=== PATIENT | male | born 1940 | race Caucasian/White ===

== ENCOUNTER 2021-09-29 10:23 | Outpatient (CLI) | payer OTHER, SELFPAY ==
--- NOTE | ~2021-09-29 | XR_ITS ---
EXAMINATION: XR knee RT 2V DATE: 09/29/2021 10:41 INDICATION: Right knee pain TECHNIQUE: Two views of the right knee were obtained. COMPARISON: None. FINDINGS: Alignment is normal. No fracture or osteochondral lesion. There is mild tricompartmental os teoarthritis characterized by tiny marginal osteophytes and mild joint space narrowing. No joint effu ran/synovitis. Soft tissues are unremarkable. IMPRESSION: 1. Mild osteoarthritis. Reviewed, dictated and finalized at location A. 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 Mild osteoarthritis.
== END 2021-09-29 10:24 | disposition home or self-care (01) ==
LOC: ANHIMG 10:25
PROVIDERS: PCP Emergency Medicine; Visit Provider Emergency Medicine
DX: M17.11 Unilateral primary osteoarthritis, right knee (principal)
CPT/HCPCS: 73560

== ENCOUNTER 2022-08-09 11:18 | Emergency (ER) | payer OTHER, SELFPAY ==
[2022-08-09 11:22] VITALS: BP 114/67; PULSE 101; RESP 18; TEMP 36.5; O2SAT 98
[2022-08-09 12:07] LABS: Add Urine Microscopic? YES; Appearance Urine Clear (Clear); Bilirubin Urine Negative (Negative); Blood Urine 1+ (Negative); Color Urine Yellow (Yellow); Glucose Urine UA Negative (Negative); Ketones Urine Negative (Negative); Leukocyte Esterase Ur Negative LEU/UL (Negative); Mucus Urine Rare /lpf; Nitrate Urine Negative (Negative); Protein Urine Negative (Negative); Specific Grav Ur 1.012 (1.001-1.035); Urobilinogen Urine Negative mg/dL (<2.0); WBC Urine 0-3 /hpf
--- NOTE | 2022-08-09 13:00 | ED.MALEGU ---
HPI - Male Genitourinary General Chief complaint: Urogenital-Male Stated complaint: urinary retention Time Seen by Provider: 08/09/22 13:00 Source: patient Mode of arrival: ambulatory Limitations: no limitations History of Present Illness HPI Narrative: Patient is an 81-year-old male with a history of urinary retention presenting to the emergency department for evaluation of straining with urination, difficulty with urination ongoing over the past 72 hours. Patient states he noted symptoms 3 days ago after a night of heavy alcohol use. Patient states he has straining with urination and slow stream that progressed over the weekend. Patient states that he felt like he cannot fully empty his bladder and had some mild abdominal discomfort with this. Patient denies any back pain. He denies fever, chills, hematuria. Patient reports history of this in the past for which he required Motta catheter, this was removed by urology and patient has not had recurrence in 2 years. Related Data Home Medications Medication Instructions Recorded Confirmed albuterol sulfate 2.5 mg/3 mL See Rx Instructions .Route .COMPLEX 10/25/19 09/29/21 (0.083 %) solution for nebulization budesonide-formoterol HFA 80 2 puff inhalation .COMPLEX 10/25/19 09/29/21 mcg-4.5 mcg/actuation aerosol inhaler (Symbicort) tramadol 50 mg tablet (Ultram) 50 mg PO Q6H PRN 10/25/19 09/29/21 Allergies Allergy/AdvReac Type Severity Reaction Status Date / Time No Known Allergies Allergy Verified 07/12/22 09:29 Review of Systems Review of Systems: CONSTITUTIONAL: Denies fever CARDIOVASCULAR: Denies chest pain RESPIRATORY: Denies cough or dyspnea. GASTROINTESTINAL: Denies abdominal pain, reports mild suprapubic distesnion with reports urinary retention SKIN: Denies rash MUSCULOSKELETAL: Denies back pain NEUROLOGIC: Denies headache PMFSH Past Medical History Medical History Acute dermatitis Body mass index [BMI] 26.0-26.9, adult (07/22/17) Body mass index [BMI] 27.0-27.9, adult (02/01/17) Body mass index [BMI] 31.0-31.9, adult (05/18/16) Bronchitis Coughing Enlarged prostate without lower urinary tract symptoms (luts) HLD (hyperlipidemia) URI, acute Wheezing Family History Family History Father Family history of congestive heart failure, Onset Age: 92 Sibling Asthma Social History Social History Smoking status: Former smoker Smoking end date: 10/24/77 Alcohol intake: current Exam Narrative: GENERAL: Awake, alert, conversant HEAD: Normocephalic, atraumatic. EYES: PERRLA and EOMI. ENT: Nares clear, no rhinorrhea or epistaxis. Mucous membranes moist. NECK: Supple. CHEST: No respiratory distress, breathing even and non labored HEART: Regular rate, sinus rhythm ABDOMEN:Non distended, non tender, no significant distension EXTREMITIES: Normal range of motion. No edema. SKIN: Warm, dry, no rash. NEURO:No focal deficits. Alert and oriented x3 Course Vital Signs Vital signs: Vital Signs Temperature 36.5 C 08/09/22 11:22 Pulse Rate 101 H 08/09/22 11:22 Respiratory Rate 18 08/09/22 11:22 Blood Pressure 114/67 08/09/22 11:22 Pulse Oximetry 98 08/09/22 11:22 Oxygen Delivery Room Air 08/09/22 11:22 Temperature 36.5 C 08/09/22 11:22 Pulse Rate 101 H 08/09/22 11:22 Respiratory Rate 18 08/09/22 11:22 Blood Pressure 114/67 08/09/22 11:22 Pulse Oximetry 98 08/09/22 11:22 Oxygen Delivery Room Air 08/09/22 11:22 MDM - Male Genitourinary MDM Narrative Medical decision making narrative: Patient presenting for evaluation of urinary retention after a night of heavy alcohol use. At the time of assessment, ABCs are intact and vital signs are stable. Patient without any significant pain on exam. Motta catheter was placed due to
[2022-08-09 13:52] LABS: Basophils Absolute Auto 0.1 K/mm3 (0.0-0.1); Basophils Percent Auto 1.3 % (0.2-1.2); Eosinophils Absolute Auto 0.6 K/mm3 (0-0.3); Eosinophils Percent Auto 6.9 % (0-4.4); Hematocrit 45.5 % (42.0-52.0); Hemoglobin 14.5 g/dL (14.0-18.0); Immature Granulocyte Absolute 0.04 K/mm3 (0.00-0.031); Immature Granulocyte Percent A 0.5 % (0-0.5); Lymphocytes Absolute Auto 1.55 K/mm3 (0.9-3.2); Lymphocytes Percent Auto 18.1 % (18.3-44.2); Mean Corpuscular HGB Conc 31.9 g/dl (32-36); Mean Corpuscular Hemoglobin 30.2 pg (26-34); Mean Corpuscular Volume 94.8 fl (80-100); Mean Platelet Volume 8.7 fl (7.4-10.4); Monocytes Absolute Auto 0.6 K/mm3 (0.1-0.6); Monocytes Percent Auto 6.9 % (2.6-8.5); Neutrophils Absolute Auto 5.7 K/mm3 (1.3-6.7); Neutrophils Percent Auto 66.3 % (45.5-73.1); Platelet Count Result 253 k/mm3 (150-375); Red Cell Distribution Width 12.7 % (11.5-14.5); White Blood Count 8.6 K/mm3 (4.5-10.0)
[2022-08-09 14:09] LABS: Anion Gap 7 mmol/L (8-16); Blood Urea Nitrogen 15 mg/dL (9-20); Calcium 8.9 mg/dL (8.4-10.2); Carbon Dioxide 31 mmol/L (22-30); Chloride 99 mmol/L (98-107); Estimated CRCL calculation 49 ml/min; Estimated Glomerular Filt Rate > 60; Glucose 100 mg/dL (65-110); Potassium 4.5 mmol/L (3.4-5.0); Sodium 137 mmol/L (137-145)
[2022-08-09 15:20] VITALS: BP 159/89; PULSE 79; RESP 16; O2SAT 97
== END 2022-08-09 15:20 | disposition home or self-care (01) ==
PROVIDERS: Emergency Provider Emergency Medicine; PCP Emergency Medicine
DX: N39.0 Urinary tract infection, site not specified (principal); N40.0 Benign prostatic hyperplasia without lower urinary tract symptoms; E78.5 Hyperlipidemia, unspecified; Z87.891 Personal history of nicotine dependence
CPT/HCPCS: 36415; 80048; 81001; 85025; 99283

== ENCOUNTER 2023-07-19 15:06 | Emergency (ER) | payer OTHER, SELFPAY ==
[2023-07-19 15:51] VITALS: BP 135/65; PULSE 110; RESP 18; TEMP 37.1; O2SAT 95
[2023-07-19 16:24] LABS: Appearance Urine Clear (Clear); Bilirubin Urine Negative (Negative); Blood Urine Negative (Negative); Color Urine Yellow (Yellow); Glucose Urine UA Negative (Negative); Ketones Urine Trace mg/dL (Negative); Leukocyte Esterase Ur Negative LEU/UL (Negative); Nitrate Urine Negative (Negative); Protein Urine Negative (Negative); Specific Grav Ur 1.006 (1.001-1.035); Urobilinogen Urine 0.2 mg/dL (<2.0)
[2023-07-19 16:36] LABS: Add Urine Microscopic? NO
--- NOTE | 2023-07-19 17:16 | ED.GENADULT ---
HPI - General Adult General Chief complaint: Urogenital-Male Stated complaint: urinary retention Time Seen by Provider: 07/19/23 15:56 History of Present Illness HPI narrative: 82-year-old male present emergency department for evaluation of urinary retention. Patient had urinary retention approximately 2 years ago and did have follow-up with Dr. Vaughan. patient did have the Motta catheter for approximately 16 days at that time after removal patient had no further issues with urinary retention. Patient states that he got donkyed up last night. Patient reported increased urinary pressure and inability to urinate and so he presented to the emergency department. Related Data Home Medications Medication Instructions Recorded Confirmed budesonide-formoterol HFA 80 2 puff inhalation .COMPLEX 10/25/19 07/12/23 mcg-4.5 mcg/actuation aerosol inhaler (Symbicort) tramadol 50 mg tablet (Ultram) 50 mg PO Q6H PRN 10/25/19 07/12/23 Allergies Allergy/AdvReac Type Severity Reaction Status Date / Time No Known Allergies Allergy Verified 07/19/23 15:06 Review of Systems Review of Systems: All systems reviewed & are unremarkable except as noted in HPI and below PMFSH Past Medical History Medical History Acute dermatitis Body mass index [BMI] 26.0-26.9, adult (07/22/17) Body mass index [BMI] 27.0-27.9, adult (02/01/17) Body mass index [BMI] 31.0-31.9, adult (05/18/16) Bronchitis Coughing Enlarged prostate without lower urinary tract symptoms (luts) HLD (hyperlipidemia) URI, acute Wheezing Family History Family History Father Family history of congestive heart failure, Onset Age: 92 Sibling Asthma Social History Social History Smoking status: Former smoker Smoking end date: 10/24/77 Alcohol intake: current Current Housing: Decline to Answer Concerned About Future Housing: Decline to Answer Difficulty Paying Gas/Electric Bills: Decline to Answer Difficulty Paying for Meds: Decline to Answer Currently Unemployed: Decline to Answer Education: Decline to Answer Difficulty w/ Childcare or Family Care: Decline to Answer Exam Narrative: APPEARANCE: Well appearing, no pain, no distress, well-nourished. HEAD: normocephalic, atraumatic. EYES: PERRLA/EOMI, conjunctivae clear. NOSE: Normal no drainage NECK: Supple. No adenopathy, no masses. RESPIRATORY: Airway patent, respirations nonlabored. Clear to auscultation bilaterally, no rales, rhonchi, wheezing. CARDIOVASCULAR: Regular rate and rhythm without murmurs rubs or gallops. ABDOMINAL: Soft, nontender, nondistended, normal bowel sounds MUSCULOSKELETAL: Moves all extremities. Strength/ROM intact, No edema, No calf tenderness. NEURO: Alert. Cranial nerves II through XII intact. SKIN: Warm, dry. Normal Color Course Course Emergency Course: 82-year-old male present to the emergency department for evaluation urinary tension. Patient had significant urine on the bladder scan and had greater than 800 mL of urinary output after the Motta catheter. UA showed no evidence of urinary tract infection. Patient was started on Flomax and encouraged of close follow-up with urology. All questions and concerns were addressed Vital Signs Vital signs: Vital Signs Temperature 98.7 F 07/19/23 15:51 Pulse Rate 110 H 07/19/23 15:51 Respiratory Rate 18 07/19/23 15:51 Blood Pressure 135/65 07/19/23 15:51 Pulse Oximetry 95 07/19/23 15:51 Oxygen Delivery Room Air 07/19/23 15:51 Temperature 98.7 F 07/19/23 15:51 Pulse Rate 110 H 07/19/23 15:51 Respiratory Rate 18 07/19/23 15:51 Blood Pressure 135/65 07/19/23 15:51 Pulse Oximetry 95 07/19/23 15:51 Oxygen Delivery Room Air 07/19/23 15:51 Medical Decision Making Vital Signs Vital Signs: Vital
[2023-07-19] MEDS: TAMSULOSIN HCL 0.4 MG CAPSULE PO (17:30)
== END 2023-07-19 17:44 | disposition home or self-care (01) ==
PROVIDERS: Emergency Provider Emergency Medicine; PCP Emergency Medicine
DX: N40.1 Benign prostatic hyperplasia with lower urinary tract symptoms (principal); R33.8 Other retention of urine; E78.5 Hyperlipidemia, unspecified
CPT/HCPCS: 51702; 81003; 99283; A9270

== ENCOUNTER 2023-08-29 06:39 | Outpatient (CLI) | payer OTHER, SELFPAY ==
[2023-08-29 07:29] LABS: Alanine Aminotransferase 12 U/L (6-50); Alkaline Phosphatase 36 U/L (38-126); Anion Gap 4 mmol/L (8-16); Aspartate Amino Transferase 23 U/L (17-59); Blood Urea Nitrogen 16 mg/dL (9-20); Calcium 8.9 mg/dL (8.4-10.2); Carbon Dioxide 30 mmol/L (22-30); Chloride 101 mmol/L (98-107); Cholesterol 175 mg/dL (0-200); Estimated Glomerular Filt Rate > 60; Glucose 95 mg/dL (65-110); HDL Direct 58 mg/dL; Potassium 4.3 mmol/L (3.4-5.0); Sodium 135 mmol/L (137-145); Triglycerides 52 mg/dL (<150)
[2023-08-29 07:40] LABS: LDL Cholesterol Direct 93 mg/dL
[2023-08-29 07:46] LABS: Vitamin D 25 Hydroxy 35.3 ng/mL
== END 2023-08-29 06:40 | disposition home or self-care (01) ==
PROVIDERS: PCP Emergency Medicine; Visit Provider Emergency Medicine
DX: E55.9 Vitamin D deficiency, unspecified (principal); E78.5 Hyperlipidemia, unspecified; E11.9 Type 2 diabetes mellitus without complications
CPT/HCPCS: 36415; 80053; 80061; 82306

== ENCOUNTER 2023-10-11 15:46 | Emergency (ER) | payer OTHER, SELFPAY ==
--- NOTE | ~2023-10-11 | XR_ITS ---
EXAMINATION: XR chest 2V DATE: 10/11/2023 17:59 INDICATION: Shortness of breath. TECHNIQUE: Frontal and lateral views of the chest were obtained. COMPARISON: None. FINDINGS: Calcified pulmonary nodules and calcified hilar and mediastinal lymph nodes are consistent with old granulomatous disease. No pleural effusion or pneumothorax. The heart size is normal. IMPRESSION: 1. No acute cardiopulmonary disease. 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
[2023-10-11 15:48] VITALS: BP 135/68; PULSE 97; RESP 20; TEMP 36.9; O2SAT 93
--- NOTE | 2023-10-11 16:58 | ECG_ITS ---
Measurements Intervals [place] Rate: 87 P: 81 MA: 170 QRS: -69 QRSD: 112 T: 76 QT: 351 QTc: 423 Interpretive Statements SINUS RHYTHM LEFT ANTERIOR FASCICULAR BLOCK [QRS AXIS <= -45, QR IN I, RS IN II] SEPTAL MYOCARDIAL INFARCTION , OF INDETERMINATE AGE [40+ ms Q WAVE IN V1/V2] ABNORMAL ECG NO PREVIOUS ECG AVAILABLE FOR COMPARISON Electronically Signed On 10-12-2023 15:32:45 FRONT DESK AGENT by Wilner Dsouza M.D.
--- NOTE | 2023-10-11 17:10 | ED.SOB ---
HPI - SOB/Dyspnea General Chief Complaint: Shortness of Breath/Dyspnea Stated Complaint: shortness of breath Time Seen by Provider: 10/11/23 17:09 Source: patient Mode of arrival: ambulatory Limitations: no limitations History of Present Illness HPI Narrative: Aubrey is an 82-year-old male patient presenting to the ER today with complaints of cough and shortness of breath. Reports he is bringing up some green phlegm. History of COPD. Is wheezing audibly. SpO2 93% on room air. Is able speak in full sentences. Denies any chest pain, fever, or chills. Related Data Allergies Allergy/AdvReac Type Severity Reaction Status Date / Time No Known Allergies Allergy Verified 09/02/23 08:39 Review of Systems Review of Systems: Pertinent positives per HPI. Patient denies any fever, chills, rash, headache, visual changes, dizziness, chest pain, palpitations, nausea, vomiting, diarrhea, constipation, abdominal pain, or any urinary issues. PMFSH Past Medical History Medical History Acute dermatitis Body mass index [BMI] 26.0-26.9, adult (07/22/17) Body mass index [BMI] 27.0-27.9, adult (02/01/17) Body mass index [BMI] 31.0-31.9, adult (05/18/16) Bronchitis Coughing Enlarged prostate without lower urinary tract symptoms (luts) HLD (hyperlipidemia) URI, acute Wheezing Family History Family History Father Family history of congestive heart failure, Onset Age: 92 Sibling Asthma Social History Social History Smoking status: Former smoker Smoking end date: 10/24/77 Alcohol intake: current Current Housing: Decline to Answer Concerned About Future Housing: Decline to Answer Difficulty Paying Gas/Electric Bills: Decline to Answer Difficulty Paying for Meds: Decline to Answer Currently Unemployed: Decline to Answer Education: Decline to Answer Difficulty w/ Childcare or Family Care: Decline to Answer Comments At the time of my signature, I reviewed and agree with the nursing past medical, surgical, social, and family history. There is no relevant family history pertinent to the patient complaint. Exam Narrative: General: Well-developed, well nourished, in no apparent distress Head: Normocephalic, atraumatic Eyes: Pupils equally round and reactive to light bilaterally, EOM intact, sclera and conjunctive clear, no discharge, lids normal Ears: TMs intact and clear, ear canals clear, no drainage, grossly hearing normal. Nose: Nares patent, clear nasal discharge, no inflammation, no sinus tenderness. Mouth: Oral pharynx without lesions or masses, good dentition, MMM. Neck: Supple, trachea midline, no enlargement of anterior or posterior cervical nodes, no thyroid masses or goiter palpable. Cardio: Regular rate and rhythm, s1 and s2 normal, no murmur appreciated. Resp: Inspiratory and expiratory wheezing, no crackles, rhonchi, or rubs. Course Course Emergency Course: Portions of this record may have been created with voice recognition software. Vital Signs Vital signs: Vital Signs Temperature 36.9 C 10/11/23 15:48 Pulse Rate 97 10/11/23 15:48 Respiratory Rate 20 10/11/23 15:48 Blood Pressure 135/68 10/11/23 15:48 Pulse Oximetry 93 10/11/23 15:48 Oxygen Delivery Room Air 10/11/23 15:48 Temperature 36.9 C 10/11/23 15:48 Pulse Rate 97 10/11/23 15:48 Respiratory Rate 20 10/11/23 15:48 Blood Pressure 135/68 10/11/23 15:48 Pulse Oximetry 93 10/11/23 15:48 Oxygen Delivery Room Air 10/11/23 15:48 Vital signs reviewed MDM - SOB/Dyspnea MDM Narrative Medical decision making narrative: At the time of visit patient is resting comfortably on the exam table. Patient appears to be nontoxic. EKG shows sinus rhythm with a left anterior fascicular block with an age ind
[2023-10-11 17:38] VITALS: PULSE 98; RESP 20
[2023-10-11] MEDS: ALBUTEROL SULFATE NEB 2.5 MG/3 ML INH INHALATION (17:38)
[2023-10-11] MEDS: IPRATROPIUM BR 0.02% INH SOLN 0.5 MG/2.5 ML VIAL INHALATION (17:38)
[2023-10-11 17:55] LABS: Influenza A QL RT-PCR Negative (Negative); Influenza B QL RT-PCR Negative (Negative); RSV RNA, RT-PCR Negative (Negative); SARS-CoV-2 RNA PCR Negative (Negative)
[2023-10-11 18:14] VITALS: BP 136/75; PULSE 90; RESP 20; TEMP 36.8; O2SAT 93
== END 2023-10-11 18:26 | disposition home or self-care (01) ==
PROVIDERS: Emergency Provider Nurse Practitioner Family; PCP Emergency Medicine
DX: J44.1 Chronic obstructive pulmonary disease with (acute) exacerbation (principal)
CPT/HCPCS: 71046; 87637; 93005; 94640; 99283

== ENCOUNTER 2023-12-23 07:40 | Outpatient (CLI) | payer OTHER, SELFPAY ==
[2023-12-23 08:01] LABS: Alveolar/Arterial O2 Gradient 30.5 mmHg; Base Excess ABG 2.1 mEq/l (+/-2.0); Carboxyhemoglobin 0.3 % THb (0-2.0); Fractional Inspired Oxygen 21 %; HCO3 ABG 26.5 mEq/l (22.0-26.0); Methemoglobin ABG 0.4 %THb (0-1.5); Oxygen Content ABG 19.9 %vol (16.0-22.0); Oxygen Saturation ABG 94.6 % (95.0-100.0); Oxyhemoglobin 93.8 % THb (90.0-100.0); PCO2 ABG 40.7 mmHg (35.0-45.0); PO2 ABG 70.5 mmHg (80.0-100.0); PO2 FiO2 Ratio Arterial Blood 3.36 %; Reduced Hemoglobin 5.5 %THb (0-5.0); Total Hemoglobin 15.1 g/dL (12.0-18.0); pH ABG 7.432 (7.350-7.450)
[2023-12-23 09:22] LABS: Modified Allen's Test Pass; Site Drawn RIGHT RADIAL
--- NOTE | 2023-12-23 14:20 | WPDSIXMINUTE ---
Six Minute Walk Procedure Procedure Performed Pulmonary Stress Test (6 min walk) Six Minute Walk Six Minute Walk: This is a 6 minute walk test. The test was performed and interpreted in accordance with the 2014 ERS/ATS task force guidelines. Findings: The patient's resting room air oxygen saturation measured by pulse oximetry was 96% and heart rate was 76 bpm. Patient ambulated for 381 meters and oxygen saturation remained 94 to 96%. Heart rate at the end of the study was 94 bpm. The patient did not qualify for supplemental oxygen at rest or with ambulation. There are no prior studies for comparison.
--- NOTE | 2023-12-23 14:21 | P.PCNPFT_ITS ---
PFT Procedure Performed PFT Procedure Performed Spirometry with Pre/Post Bronchodilator Plethysmography (Lung Vol) Diffusing Cap (DLCO) Flow Vol Loop PFT Interpretation This is a pulmonary function test with pre and post-bronchodilator spirometry, plethysmography, diffusing capacity and rest room air blood gas. The test was performed and results interpreted in accordance with the 2019 and 2005 ATS/ERS Task Force guidelines respectively using the Global Lung Function Initiative-2012 reference equations. Patient demonstrated good effort and cooperation. Reproducibility criteria were met. The quality of the pre bronchodilator spirometry maneuver was Grade A and post bronchodilator spirometry maneuver was Grade A. Findings: Spirometry: There is decreased maximal expiratory airflow at all lung volumes with concave expiratory flow tracing. The contour the inspiratory flow tracing is normal. The pre bronchodilator FVC is 3.36 L, 101% predicted. The pre bronchodilator FEV1 is 1.55 L, 62% predicted. The pre bronchodilator FEV1: FVC ratio is 46%. The post bronchodilator FVC is 3.75 L, representing a 12% increase. The post bronchodilator FEV1 is 1.80 L, representing a 16% increase. The post bronchodilator FEV1: FVC ratio is 48%. Plethysmography: The total lung capacity is 6.52 L, 104% predicted. The functional residual capacity is 4.10 L, 122% predicted. The residual volume is 3.16 L, 127% predicted. Diffusing capacity: The diffusing capacity unadjusted for hemoglobin and c arboxyhemoglobin is 17.5, 81% predicted. Diffusing capacity adjusted for alveolar volume is 4.07, 107 % predicted. Rest room air arterial blood gas: PH 7.43, PaCO2 41, PaO2 71 Impression: There is a moderate obstructive abnormality. There is significant improvement after inhaling a single dose of albuterol. the lung volumes are normal. The diffusing capacity is normal. The rest room air arterial blood gas shows a normal pH and PaCO2 with a PaO2 that is low but above the lower limit of normal for patient's age and does not qualify him for supplemental oxygen.
== END 2023-12-23 07:41 | disposition home or self-care (01) ==
PROVIDERS: PCP Emergency Medicine; Visit Provider Internal Medicine Pulmonary Disease
DX: J44.9 Chronic obstructive pulmonary disease, unspecified (principal)
CPT/HCPCS: 36600; 82375; 82805; 83050; 94060; 94618; 94726; 94729

== ENCOUNTER 2024-03-13 10:13 | Outpatient (CLI) | payer OTHER, SELFPAY ==
[2024-03-13 11:32] LABS: Vitamin D 25 Hydroxy 37.9 ng/mL
[2024-03-13 12:56] LABS: Alanine Aminotransferase 15 U/L (6-50); Albumin Level 3.7 g/dL (3.5-5.1); Alkaline Phosphatase 33 U/L (38-126); Anion Gap 2 mmol/L (4-12); Aspartate Amino Transferase 24 U/L (17-59); Blood Urea Nitrogen 16 mg/dL (9-20); Calcium 8.8 mg/dL (8.4-10.2); Carbon Dioxide 28 mmol/L (22-30); Chloride 106 mmol/L (98-107); Cholesterol 177 mg/dL (0-200); Estimated Glomerular Filt Rate > 60; Glucose 95 mg/dL (65-110); HDL Direct 58 mg/dL; Potassium 4.1 mmol/L (3.4-5.0); Sodium 136 mmol/L (137-145); Triglycerides 51 mg/dL (<150)
[2024-03-13 13:07] LABS: LDL Cholesterol Direct 108 mg/dL
[2024-03-13 13:26] LABS: Thyroid Stimulating Hormone 0.514 uIU/mL (0.465-4.680)
[2024-03-15 17:19] LABS: H pylori, Urea Breath DETECTED (NOT DETECTED)
== END 2024-03-13 10:14 | disposition home or self-care (01) ==
LOC: ANHLAB 10:14
PROVIDERS: PCP Emergency Medicine; Visit Provider Emergency Medicine
DX: R10.9 Unspecified abdominal pain (principal); E55.9 Vitamin D deficiency, unspecified; E78.5 Hyperlipidemia, unspecified; E03.9 Hypothyroidism, unspecified; E78.2 Mixed hyperlipidemia
CPT/HCPCS: 36415; 80053; 80061; 82306; 83013; 84443

== ENCOUNTER 2024-07-09 09:16 | Outpatient (CLI) | payer OTHER, SELFPAY ==
[2024-07-09 10:12] LABS: Alanine Aminotransferase 16 U/L (6-50); Albumin Level 3.8 g/dL (3.5-5.1); Alkaline Phosphatase 32 U/L (38-126); Anion Gap 2 mmol/L (4-12); Aspartate Amino Transferase 26 U/L (17-59); Bilirubin,Total 0.9 mg/dL (0.2-1.3); Blood Urea Nitrogen 12 mg/dL (9-20); Calcium 8.9 mg/dL (8.4-10.2); Carbon Dioxide 31 mmol/L (22-30); Chloride 98 mmol/L (98-107); Cholesterol 166 mg/dL (0-200); Estimated Glomerular Filt Rate > 60; Glucose 94 mg/dL (65-110); HDL Direct 59 mg/dL; Sodium 131 mmol/L (137-145); Triglycerides 56 mg/dL (<150)
[2024-07-09 10:23] LABS: LDL Cholesterol Direct 86 mg/dL
[2024-07-09 10:37] LABS: Vitamin D 25 Hydroxy 32.9 ng/mL
[2024-07-09 11:04] LABS: Potassium 5.3 mmol/L (3.4-5.0)
== END 2024-07-09 09:17 | disposition home or self-care (01) ==
PROVIDERS: PCP Emergency Medicine; Visit Provider Emergency Medicine
DX: E55.9 Vitamin D deficiency, unspecified (principal); E78.2 Mixed hyperlipidemia
CPT/HCPCS: 36415; 80053; 80061; 82306

== ENCOUNTER 2024-07-10 10:33 | Outpatient (CLI) | payer OTHER, SELFPAY ==
--- NOTE | ~2024-07-10 | XR_ITS ---
EXAMINATION: XR shoulder LT min 2V DATE: 07/10/2024 10:49 INDICATION: 3 days posterior left shoulder pain TECHNIQUE: AP internally and externally rotated, AP oblique externally rotated and transscapular Y vi ews of the left shoulder were obtained. COMPARISON: None FINDINGS: Normal alignment. No fracture.Mild left glenohumeral and moderate acromioclavicular osteoarthritis. Tiny dystrophic calcification overlying the superior and posterior facets of the greater tuberosity c onsistent with rotator cuff calcific tendinitis. Soft tissues are otherwise unremarkable. Small calci fied nodule at the left upper lung and calcified bilateral hilar and mediastinal lymph nodes consiste nt with old granulomatous disease. IMPRESSION: 1. Mild left glenohumeral and moderate acromial clavicular osteoarthritis. 2. Left rotator cuff calcific tendinitis. Reviewed, dictated and finalized at location B.
== END 2024-07-10 10:34 | disposition home or self-care (01) ==
LOC: ANHIMG 10:35
PROVIDERS: PCP Emergency Medicine; Visit Provider Emergency Medicine
DX: M19.012 Primary osteoarthritis, left shoulder (principal)
CPT/HCPCS: 73030

== ENCOUNTER 2024-07-28 05:53 | Emergency (ER) | payer OTHER, SELFPAY ==
[2024-07-28 06:00] VITALS: BP 132/68; PULSE 74; RESP 16; TEMP 36.7
--- NOTE | 2024-07-28 06:16 | ED.GENADULT ---
HPI - General Adult General Chief complaint: Extremity Injury, Upper Stated complaint: L shoulder pain x1 month Time Seen by Provider: 07/28/24 06:02 History of Present Illness HPI narrative: Patient 83-year-old gentleman who presents emergency department with chief complaint of left shoulder pain for 1 month. Patient reports he has seen his primary care provider had x-rays that showed tendinitis and arthritis the patient completed a steroid pulse but had no improvement. Patient reports that pain has gotten where it is keeping him from sleeping the patient denies trauma denies chest pain denies shortness of breath denies diaphoresis. Related Data Allergies Allergy/AdvReac Type Severity Reaction Status Date / Time No Known Allergies Allergy Verified 07/28/24 05:54 Review of Systems Review of Systems: A 10 system review of systems was completed on the patient and is negative except for what is stated in the HPI. Nursing and ancillary documentation was reviewed. [facility] Past Medical History Medical History Acute dermatitis Body mass index [BMI] 26.0-26.9, adult (07/22/17) Body mass index [BMI] 27.0-27.9, adult (02/01/17) Body mass index [BMI] 31.0-31.9, adult (05/18/16) Bronchitis Contact dermatitis Coughing Encounter for immunization Enlarged prostate without lower urinary tract symptoms (luts) HLD (hyperlipidemia) URI, acute Urinary retention Wheezing Surgical History Surgical History History of skin surgery 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 No problems noted. Sibling Acute myocardial infarction Social History Social History Smoking status: Former smoker Second hand tobacco smoke exposure: Yes Smoking end date: 10/24/77 Alcohol intake: former Alcohol use details: last alcohol use 05/2023 Substance use: never Substance use type: does not use Do You Feel Safe in your Home?: Yes Lack of Transportation: No Lack of Food: Never True Current Housing: I Have Housing Concerned About Future Housing: Decline to Answer Difficulty Paying Gas/Electric Bills: Decline to Answer Difficulty Paying for Meds: Decline to Answer Currently Unemployed: Decline to Answer Education: Trade/Vocational Certificate Difficulty w/ Childcare or Family Care: No Living arrangements: with family 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 HEAD: Normocephalic, atraumatic. EYES: PERRLA and EOMI. ENT: Nares clear, no rhinorrhea or epistaxis. Mucous membranes moist. NECK: Supple. CHEST: Clear to auscultation. No respiratory distress. HEART: Regular rate and rhythm. No murmur heard. Normal peripheral pulses. ABDOMEN: Soft, nontender, nondistended, normal active bowel sounds. EXTREMITIES: Normal range of motion tenderness to palpation the left shoulder. No edema. SKIN: Warm, dry, no rash. NEURO: No focal deficits. Alert and oriented x3. PSYCH: Normal mood and affect. Medical Decision Making MDM Narrative Medical decision making narrative: Differential diagnosis includes tendinitis, arthritis, Patient showed no signs of ACS Patient has prior x-rays were reviewed from 07/10/2024 reported as an outpatient this showed evidence of 1. Mild left glenohumeral and moderate acromial clavicular osteoarthritis. 2. Left rotator cuff calcific tendinitis. The patient will be given a dose of Decadron Toradol single dose of [place] in the emergency departme
[2024-07-28] MEDS: KETOROLAC 30 MG/ML VIAL (*BKC) 15 MG IM (06:28)
[2024-07-28] MEDS: dexAMETHasone SOD PHOS INJ 10 MG/ML 1 ML VIAL IM (06:28)
[2024-07-28] MEDS: HYDROcodone/acetaminophen (*CRX) 5-325 MG TABLET 1 TAB PO (06:29)
== END 2024-07-28 06:35 | disposition home or self-care (01) ==
LOC: ANHED 06:29
PROVIDERS: Emergency Provider Emergency Medicine; PCP Emergency Medicine
DX: M77.8 Other enthesopathies, not elsewhere classified (principal); M25.512 Pain in left shoulder; E78.5 Hyperlipidemia, unspecified; N40.0 Benign prostatic hyperplasia without lower urinary tract symptoms; Z87.891 Personal history of nicotine dependence; Z79.51 Long term (current) use of inhaled steroids
CPT/HCPCS: 96372; 99284; A9270; J1100; J1885

== ENCOUNTER 2024-09-23 11:11 | Emergency (ER) | payer OTHER, SELFPAY ==
[2024-09-23 11:11] VITALS: BP 94/52; PULSE 107; RESP 18; TEMP 36.4; O2SAT 98
[2024-09-23 11:50] LABS: Add Urine Microscopic? NO; Appearance Urine Clear (Clear); Bilirubin Urine Negative (Negative); Blood Urine Negative (Negative); Color Urine Yellow (Yellow); Glucose Urine UA Negative (Negative); Ketones Urine Trace mg/dL (Negative); Leukocyte Esterase Ur Negative LEU/UL (Negative); Nitrate Urine Negative (Negative); Protein Urine Negative (Negative); Urobilinogen Urine 0.2 mg/dL (<2.0); pH Urine 5.5 (5.0-9.0)
[2024-09-23 12:52] VITALS: BP 118/64; PULSE 88; RESP 16; TEMP 36.8; O2SAT 95
--- NOTE | 2024-09-23 13:16 | ED.GENADULT ---
HPI - General Adult General Chief complaint: Urogenital-Male Stated complaint: urinary retention Time Seen by Provider: 09/23/24 12:32 History of Present Illness HPI narrative: This is a 83-year-old male with history of urinary retention presenting with urinary retention. Patient is on Flomax twice daily. Patient said he drank 5 beers yesterday and forgot to take his Flomax and today he was unable to urinate. He then developed lower abdominal pressure and pain. No systemic signs of illness such as fever chills nausea vomiting diarrhea or dysuria. Related Data Home Medications Medication Instructions Recorded Confirmed levofloxacin 500 mg tablet 500 mg PO DAILY 09/10/24 09/10/24 Allergies Allergy/AdvReac Type Severity Reaction Status Date / Time No Known Allergies Allergy Verified 09/23/24 11:28 [facility] Past Medical History Medical History Acute dermatitis Body mass index [BMI] 26.0-26.9, adult (07/22/17) Body mass index [BMI] 27.0-27.9, adult (02/01/17) Body mass index [BMI] 31.0-31.9, adult (05/18/16) Bronchitis Contact dermatitis Coughing Encounter for immunization Enlarged prostate without lower urinary tract symptoms (luts) HLD (hyperlipidemia) URI, acute Urinary retention Wheezing Surgical History Surgical History History of skin surgery 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 No problems noted. Sibling Acute myocardial infarction Social History Social History Smoking status: Former smoker Second hand tobacco smoke exposure: Yes Smoking end date: 10/24/77 Alcohol intake: former Alcohol use details: last alcohol use 05/2023 Substance use: never Substance use type: does not use Do You Feel Safe in your Home?: Yes Lack of Transportation: No Lack of Food: Never True Current Housing: I Have Housing Concerned About Future Housing: No Difficulty Paying Gas/Electric Bills: No Difficulty Paying for Meds: No Currently Unemployed: No Education: Trade/Vocational Certificate Difficulty w/ Childcare or Family Care: No Living arrangements: with family 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 Head: atraumatic. EYES: EOMI, NOSE: Atraumatic NECK: Trachea midline RESPIRATORY: No increased rate of breathing CARDIOVASCULAR: RRR, ABDOMINAL: Abdomen is soft nontender with no guarding or rebound -I examined the patient after a new Motta had been placed it already been decompressed MUSCULOSKELETAl: No obvious deformities NEURO: Alert. Moving 4/4 extremities SKIN:: Warm, dry. Normal color PSYCHIATRIC: Normal affect Course Vital Signs Vital signs: Vital Signs Temperature 97.6 F 09/23/24 11:11 Pulse Rate 107 H 09/23/24 11:11 Respiratory Rate 18 09/23/24 11:11 Blood Pressure 94/52 L 09/23/24 11:11 Pulse Oximetry 98 09/23/24 11:11 Oxygen Delivery Room Air 09/23/24 11:11 Temperature 98.2 F 09/23/24 12:52 Pulse Rate 88 09/23/24 12:52 Respiratory Rate 16 09/23/24 12:52 Blood Pressure 118/64 09/23/24 12:52 Pulse Oximetry 95 09/23/24 12:52 Oxygen Delivery Room Air 09/23/24 11:11 Medical Decision Making MDM Narrative Medical decision making narrative: -Course: 83-year-old male history urinary retention presented urinary retention after feeding today is Flomax. Motta was placed with improvement in symptoms. Patient given a leg bag Neurology follow-up. Discharged. Vital Signs Vital Signs: Vital Signs Temperature 97.6 F 09/23/24 11:11 Pulse Rate 107 H 09/23/24 11:11 Respiratory Rate 18 09/23/24 11:11 Blood Pressure 94/52 L 09/23/24 11:11 Pulse Oximetry 98 09/23/24 11:11 Oxygen Delivery Room Air 09/23/24 11:11 Temperature 98.2 F 09/23/24 12:52 Pulse Rate 88 09/23/24 12:52 Respiratory Rate 16 09/23/24 12:52 Blood Pressure 118/64 09/23/24 12:52 Pulse Oximetry 95 09/23/24 12:52 Oxygen Delivery Room Air 09/23/24 11:11 Lab Data Labs: Lab Results 09/23/24 Range/Units 11:41 Urine Color Yellow (Yellow) Urine Appearance Clear (Clear) Urine pH 5.5 (5.0-9.0) Ur Specific [place] 1.010 (1.001-1.035) Urine Protein Negative (Negative) mg/dL Urine Glucose (UA) Negative (Negative) mg/dL Urine Ketones Trace H (Negative) mg/dL Ur Blood (Man) Negative (Negative) Urine Nitrate Negative (Negative) Urine Bilirubin Negative (Negative) Urine Urobilinogen 0.2 (<2.0) mg/dL Leukocyte Esterase Rfl Negative (Negative) RITESH/UL Discharge Plan Discharge Clinical Impression: Acute urinary retention Patient Disposition: Home, Self-Care Condition: Stable Instructions: Antibiotic Form, Urinary Retention in Men (ED) Additional Instructions: Please take your Flomax as instructed. Please follow-up with urology in 1 week for voiding trial. Return if you develop severe abdominal pain fevers chills or if your condition is getting worse. Prescriptions: No Action levofloxacin 500 mg tablet 500 mg PO DAILY meloxicam 15 mg tablet 15 mg PO DAILY Qty: 30 0RF tamsulosin [Flomax] 0.4 mg capsule 0.4 mg PO DAILY 14 Days Qty: 14 0RF meloxicam 15 mg tablet 15 mg PO DAILY 14 Days Qty: 14 0RF amlodipine 5 mg tablet See Rx Instructions .ROUTE .COMPLEX Qty: 90 2RF Dose Instruction: TAKE 1 TABLET BY MOUTH EVERY DAY Rx Instructions: TAKE 1 TABLET BY MOUTH EVERY DAY zolpidem 10 mg tablet 10 mg PO QHS Qty: 90 0RF furosemide [Lasix] 20 mg tablet 20 mg PO DAILY Qty: 14 0RF finasteride 5 mg tablet See Rx Instructions .ROUTE .COMPLEX Qty: 90 2RF Dose Instruction: TAKE 1 TABLET BY MOUTH EVERY DAY Rx Instructions: TAKE 1 TABLET BY MOUTH EVERY DAY Follow-up/Referrals: Davie Lewis MD [Primary Care Provider] - Kb Grant MD [Physician] - 1 Week (Urinary retention)
[2024-09-23 13:29] VITALS: BP 129/66; PULSE 91; RESP 17; O2SAT 95
== END 2024-09-23 13:52 | disposition home or self-care (01) ==
PROVIDERS: Student in an Organized Health Care Education/Training Program; Emergency Provider Emergency Medicine; PCP Emergency Medicine
DX: N40.1 Benign prostatic hyperplasia with lower urinary tract symptoms (principal); R33.8 Other retention of urine; E78.5 Hyperlipidemia, unspecified; Z87.891 Personal history of nicotine dependence
CPT/HCPCS: 51702; 81003; 99283

== ENCOUNTER 2024-09-25 14:21 | Outpatient (CLI) | payer OTHER, SELFPAY ==
--- NOTE | ~2024-09-25 | MR_ITS ---
EXAMINATION: MR cervical spine wo con DATE: 09/25/2024 15:04 INDICATION: Radiculopathy, cervical region. TECHNIQUE: Magnetic resonance imaging (MRI) of the cervical spine was performed without intravenous c ontrast. Sequences included sagittal T2-weighted FSE, sagittal T2-weighted FS FSE, sagittal T1-weight ed FSE, axial MERGE, and axial T2-weighted FSE. COMPARISON: Cervical spine radiographs 08/08/24 FINDINGS: There is 7 degrees dextrocurvature of cervical spine. There is 2 mm retrolisthesis of C3 on C4 and 2 mm anterolisthesis of C5 on C6. There is mild chronic anterior wedging of C6 vertebral body . There is severely decreased disc height at C3-C4, mildly decreased disc height at C4-C5, and severe ly decreased disc height at C6-C7. 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 The following disc levels are specifically discussed: C2-C3: There is a central protrusion. There is mild bilateral uncovertebral joint osteoarthritis. The re is severe right and moderate left facet joint osteoarthritis. There is mild bilateral neural patsy inal stenosis. There is mild central canal stenosis. C3-C4: The disc is bulging. There is severe bilateral uncovertebral joint osteoarthritis. There is mi ld bilateral facet joint osteoarthritis. There is severe bilateral neural foraminal stenosis. There i s moderate central canal stenosis with ventral and dorsal indentation of the spinal cord. C4-C5: There is a central protrusion. There is mild bilateral uncovertebral joint osteoarthritis. The re is severe bilateral facet joint osteoarthritis. There is moderate bilateral neural foraminal steno sis. There is moderate central canal stenosis with ventral and dorsal indentation of the spinal cord. C5-C6: The disc does not extend beyond the endplate margin. There is mild bilateral uncovertebral heath nt osteoarthritis. There is severe bilateral facet joint osteoarthritis. There is mild bilateral neur al foraminal stenosis. There is no central canal stenosis. C6-C7: The disc is bulging. There is moderate right and severe left uncovertebral joint osteoarthriti s. There is severe bilateral facet joint osteoarthritis. There is mild right and moderate left neural foraminal stenosis. There is mild central canal stenosis. C7-T1: The disc does not extend beyond the endplate margin. There is mild left uncovertebral joint os teoarthritis. There is severe bilateral facet joint osteoarthritis. There is mild bilateral neural fo raminal stenosis. There is no central canal stenosis. IMPRESSION: 1. Severe cervical spondylosis. 2. 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 Reviewed, dictated and finalized at location [facility] [employer]
== END 2024-09-25 14:22 | disposition home or self-care (01) ==
PROVIDERS: PCP Emergency Medicine; Visit Provider Physician Assistant Surgical
DX: M47.22 Other spondylosis with radiculopathy, cervical region (principal)
CPT/HCPCS: 72141

== ENCOUNTER 2024-09-29 05:31 | Emergency (ER) | payer OTHER, SELFPAY ==
[2024-09-29 05:35] VITALS: BP 121/66; PULSE 94; RESP 16; TEMP 36.2; O2SAT 98
--- NOTE | 2024-09-29 06:49 | PC.NURSE ---
Pt states he had a catheter remove yesterday and after around 1300 yesterday he was unable to urinate
--- NOTE | 2024-09-29 06:50 | ED_ITS ---
HPI - General Adult General Chief complaint: Urogenital-Male <Yahir Patel MD - Last Filed: 09/29/24 06:56> Stated complaint: decreased urination <Yahir Patel MD - Last Filed: 09/29/24 06:56> Time Seen by Provider: 09/29/24 06:48 <Yahir Patel MD - Last Filed: 09/29/24 06:56> History of Present Illness HPI narrative: Patient is a 3-year-old gentleman presents emergency department chief complaint of urinary retention patient reports that he does had a catheter removed yesterday reports that he has been unable to urinate this evening. <Yahir Patel MD - Last Filed: 09/29/24 06:56> Related Data Home medications: Home Medications Medication Instructions Recorded Confirmed levofloxacin 500 mg tablet 500 mg PO DAILY 09/10/24 09/10/24 <Yahir Patel MD - Last Filed: 09/29/24 06:56> Allergies/adverse reactions: Allergies Allergy/AdvReac Type Severity Reaction Status Date / Time No Known Allergies Allergy Verified 09/29/24 05:32 <Yahir Patel MD - Last Filed: 09/29/24 06:56> Review of Systems Review of Systems: A 10 system review of systems was completed on the patient and is negative except for what is stated in the HPI. Nursing and ancillary documentation was reviewed. <Yahir Patel MD - Last Filed: 09/29/24 06:56> [facility] Past Medical History Medical History: Medical History Acute dermatitis Body mass index [BMI] 26.0-26.9, adult (07/22/17) Body mass index [BMI] 27.0-27.9, adult (02/01/17) Body mass index [BMI] 31.0-31.9, adult (05/18/16) Bronchitis Contact dermatitis Coughing Encounter for immunization Enlarged prostate without lower urinary tract symptoms (luts) HLD (hyperlipidemia) URI, acute Urinary retention Wheezing <Yahir Patel MD - Last Filed: 09/29/24 06:56> Surgical History Surgical History: Surgical History History of skin surgery 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 No problems noted. Sibling Acute myocardial infarction <Yahir Patel MD - Last Filed: 09/29/24 06:56> Social History Social History: Social History Smoking status: Former smoker Second hand tobacco smoke exposure: Yes Smoking end date: 10/24/77 Alcohol intake: former Alcohol use details: last alcohol use 05/2023 Substance use: never Substance use type: does not use Do You Feel Safe in your Home?: Yes Lack of Transportation: No Lack of Food: Never True Current Housing: I Have Housing Concerned About Future Housing: No Difficulty Paying Gas/Electric Bills: No Difficulty Paying for Meds: No Currently Unemployed: No Education: Trade/Vocational Certificate Difficulty w/ Childcare or Family Care: No Living arrangements: with family 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 HEAD: Normocephalic, atraumatic. EYES: PERRLA and EOMI. ENT: Nares clear, no rhinorrhea or epistaxis. Mucous membranes moist. NECK: Supple. CHEST: Clear to auscultation. No respiratory distress. HEART: Regular rate and rhythm. No murmur heard. Normal peripheral pulses. ABDOMEN: Soft, nontender, nondistended, normal active bowel sounds. EXTREMITIES: Normal range of motion. No edema. SKIN: Warm, dry, no rash. NEURO: No focal deficits. Alert and oriented x3. PSYCH: Normal mood and affect. <Yahir Patel MD - Last Filed: 09/29/24 06:56> Course Course Emergency Course: Patient signed out to me pending follow up of UA. This is without signs of infection. Patient to be provided a leg bag and discharged home with indwelling sr and advised to follow up with urology and given ED return precautions. <Lory Griffiths MD - Last Filed: 09/30/24 07:23> Vital Signs Vital signs: Vital Signs Temperature 97.1 F L 09/29/24 05:35 Pulse Rate 94 09/29/24 05:35 Respiratory Rate 16 09/29/24 05:35 Blood Pressure 121/66 09/29/24 05:35 Pulse Oximetry 98 09/29/24 05:35 Oxygen Delivery Room Air 09/29/24 05:35 Temperature 97.1 F L 09/29/24 05:35 Pulse Rate 76 09/29/24 08:15 Respiratory Rate 18 09/29/24 08:15 Blood Pressure 143/72 H 09/29/24 08:15 Pulse Oximetry 95 09/29/24 08:15 Oxygen Delivery Room Air 09/29/24 05:35 <Yahir Patel MD - Last Filed: 09/29/24 06:56> Vital Signs Temperature 97.1 F L 09/29/24 05:35 Pulse Rate 94 09/29/24 05:35 Respiratory Rate 16 09/29/24 05:35 Blood Pressure 121/66 09/29/24 05:35 Pulse Oximetry 98 09/29/24 05:35 Oxygen Delivery Room Air 09/29/24 05:35 Temperature 97.1 F L 09/29/24 05:35 Pulse Rate 76 09/29/24 08:15 Respiratory Rate 18 09/29/24 08:15 Blood Pressure 143/72 H 09/29/24 08:15 Pulse Oximetry 95 09/29/24 08:15 Oxygen Delivery Room Air 09/29/24 05:35 <Lory Griffiths MD - Last Filed: 09/30/24 07:23> Medical Decision Making MDM Narrative Medical decision making narrative: Differential diagnosis includes urinary retention, UTI Patient 800 mL of urine in his bladder on bladder scan Sr catheter was placed by the nursing staff and a urinalysis has been sent The patient was changed to a leg bag and plan will be to discharge the patient home follow-up with urology <Yahir Patel MD - Last Filed: 09/29/24 06:56> Vital Signs Vital Signs: Vital Signs Temperature 97.1 F L 09/29/24 05:35 Pulse Rate 94 09/29/24 05:35 Respiratory Rate 16 09/29/24 05:35 Blood Pressure 121/66 09/29/24 05:35 Pulse Oximetry 98 09/29/24 05:35 Oxygen Delivery Room Air 09/29/24 05:35 Temperature 97.1 F L 09/29/24 05:35 Pulse Rate 76 09/29/24 08:15 Respiratory Rate 18 09/29/24 08:15 Blood Pressure 143/72 H 09/29/24 08:15 Pulse Oximetry 95 09/29/24 08:15 Oxygen Delivery Room Air 09/29/24 05:35 <Yahir Patel MD - Last Filed: 09/29/24 06:56> Vital Signs Temperature 97.1 F L 09/29/24 05:35 Pulse Rate 94 09/29/24 05:35 Respiratory Rate 16 09/29/24 05:35 Blood Pressure 121/66 09/29/24 05:35 Pulse Oximetry 98 09/29/24 05:35 Oxygen Delivery Room Air 09/29/24 05:35 Temperature 97.1 F L 09/29/24 05:35 Pulse Rate 76 09/29/24 08:15 Respiratory Rate 18 09/29/24 08:15 Blood Pressure 143/72 H 09/29/24 08:15 Pulse Oximetry 95 09/29/24 08:15 Oxygen Delivery Room Air 09/29/24 05:35 <Lory Griffiths MD - Last Filed: 09/30/24 07:23> Lab Data Labs: Lab Results 09/29/24 Range/Units 07:06 Urine Color Yellow (Yellow) Urine Appearance Clear (Clear) Urine pH 6.5 (5.0-9.0) Ur Specific [place] 1.012 (1.001-1.035) Urine Protein Negative (Negative) mg/dL Urine Glucose (UA) Negative (Negative) mg/dL Urine Ketones Negative (Negative) mg/dL Ur Blood (Man) Non-hemolyzed trace (Negative) Urine Nitrate Negative (Negative) Urine Bilirubin Negative (Negative) Urine Urobilinogen 0.2 (<2.0) mg/dL Leukocyte Esterase Rfl Negative (Negative) RITESH/UL Urine RBC 3-5 H (0-2) /hpf Urine WBC 0-5 (0-3) /hpf Ur Squamous Epith Cells None seen (Few) /hpf Urine Bacteria None seen /hpf Urine Casts 0-2 <Yahir Patel MD - Last Filed: 09/29/24 06:56> Lab Results 09/29/24 Range/Units 07:06 Urine Color Yellow (Yellow) Urine Appearance Clear (Clear) Urine pH 6.5 (5.0-9.0) Ur Specific [place] 1.012 (1.001-1.035) Urine Protein Negative (Negative) mg/dL Urine Glucose (UA) Negative (Negative) mg/dL Urine Ketones Negative (Negative) mg/dL Ur Blood (Man) Non-hemolyzed trace (Negative) Urine Nitrate Negative (Negative) Urine Bilirubin Negative (Negative) Urine Urobilinogen 0.2 (<2.0) mg/dL Leukocyte Esterase Rfl Negative (Negative) RITESH/UL Urine RBC 3-5 H (0-2) /hpf Urine WBC 0-5 (0-3) /hpf Ur Squamous Epith Cells None seen (Few) /hpf Urine Bacteria None seen /hpf Urine Casts 0-2 <Lory Griffiths MD - Last Filed: 09/30/24 07:23> Discharge Plan Discharge Clinical Impression: Acute on chronic urinary retention, Microscopic hematuria <Yahir Patel MD - Last Filed: 09/29/24 06:56> Patient Disposition: Home, Self-Care <Yahir Patel MD - Last Filed: 09/29/24 06:56> Condition: Stable <Yahir Patel MD - Last Filed: 09/29/24 06:56> Instructions: Antibiotic Form, Urinary Retention in Men (ED), Sr Catheter Placement and Care (ED) <Yahir Patel MD - Last Filed: 09/29/24 06:56> Additional Instructions: You will keep the Sr catheter in place until you are able to follow-up with your urologist. If you do not have 1 the name of a urologist is listed below. Return to the emergency department with any new or worsening symptoms such as abdominal pain, fever greater than 100.4? F, catheter not draining, etc. You are also being provided a leg bag which is a bit smaller and more discrete if preferred. <Yahir Patel MD - Last Filed: 09/29/24 06:56> Prescriptions: No Action levofloxacin 500 mg tablet 500 mg PO DAILY meloxicam 15 mg tablet 15 mg PO DAILY Qty: 30 0RF tamsulosin [Flomax] 0.4 mg capsule 0.4 mg PO DAILY 14 Days Qty: 14 0RF meloxicam 15 mg tablet 15 mg PO DAILY 14 Days Qty: 14 0RF amlodipine 5 mg tablet See Rx Instructions .ROUTE .COMPLEX Qty: 90 2RF Dose Instruction: TAKE 1 TABLET BY MOUTH EVERY DAY Rx Instructions: TAKE 1 TABLET BY MOUTH EVERY DAY zolpidem 10 mg tablet 10 mg PO QHS Qty: 90 0RF furosemide [Lasix] 20 mg tablet 20 mg PO DAILY Qty: 14 0RF finasteride 5 mg tablet See Rx Instructions .ROUTE .COMPLEX Qty: 90 2RF Dose Instruction: TAKE 1 TABLET BY MOUTH EVERY DAY Rx Instructions: TAKE 1 TABLET BY MOUTH EVERY DAY <Yahir Patel MD - Last Filed: 09/29/24 06:56> Follow-up/Referrals: Willie Fregoso MD [Physician] - (Urology) Davie Lewis MD [Primary Care Provider] - <Yahir Patel MD - Last Filed: 09/29/24 06:56> Time of Disposition: 07:41 <Yahir Patel MD - Last Filed: 09/29/24 06:56> 07:41 <Lory Griffiths MD - Last Filed: 09/30/24 07:23>
--- NOTE | 2024-09-29 06:55 | PC.NURSE ---
Urine sample previously sent down to lab with demo label
[2024-09-29 07:22] LABS: Add Urine Microscopic? NO; Appearance Urine Clear (Clear); Bacteria Urine None Seen /hpf; Bilirubin Urine Negative (Negative); Blood Urine Non-Hemolyzed Trace (Negative); Color Urine Yellow (Yellow); Glucose Urine UA Negative (Negative); Ketones Urine Negative (Negative); Leukocyte Esterase Ur Negative LEU/UL (Negative); Nitrate Urine Negative (Negative); Non Pathogenic Casts 0-2; Protein Urine Negative (Negative); Specific Grav Ur 1.012 (1.001-1.035); Squamous Epithelial Cell Urine None Seen /hpf (Few); Urobilinogen Urine 0.2 mg/dL (<2.0); WBC Urine 0-5 /hpf (0-3); pH Urine 6.5 (5.0-9.0)
[2024-09-29 08:15] VITALS: BP 143/72; PULSE 76; RESP 18; O2SAT 95
--- NOTE | 2024-09-29 08:17 | PC.NURSE ---
850mL of yellow, clear urine drained from sr catheter.
== END 2024-09-29 08:18 | disposition home or self-care (01) ==
PROVIDERS: Emergency Medicine; Emergency Provider Student in an Organized Health Care Education/Training Program; PCP Emergency Medicine
DX: R31.29 Other microscopic hematuria (principal); E78.5 Hyperlipidemia, unspecified; N40.1 Benign prostatic hyperplasia with lower urinary tract symptoms; R33.8 Other retention of urine; Z87.891 Personal history of nicotine dependence
CPT/HCPCS: 51702; 81003; 99283

== ENCOUNTER 2025-02-12 09:20 | Emergency (ER) | payer OTHER, SELFPAY ==
[2025-02-12 09:28] VITALS: BP 152/74; PULSE 83; RESP 16; TEMP 36.8; O2SAT 96
[2025-02-12] MEDS: LIDOCAINE 2% GEL UROJET 10 ML PKG (10:09)
[2025-02-12 10:11] VITALS: BP 150/76; PULSE 81; RESP 16; O2SAT 95
--- OUTSIDE RECORDS SUMMARY | 2025-02-12 10:18 | XMS_ITS | Continuity of Care Document ---
Author Organization [facility] Address [id number] [place] [address] [place] [address] Phone Care Team Providers Care Interlocker Maintainer Name Role Phone Sylvia Palma Unavailable Unavailable Procedures Procedure Date Office/outpatient Visit, Est Office/outpatient Visit, Est Eye Exam Established Pt Visual Field Examination(s) Eye Exam Established Pt Office/outpatient Visit, Est Visual Field Examination(s) Eye Exam Established Pt Advance Directives Directive Yes / No Effective Date File Name No Information Encounters Encounter Description Practice Location Reason(s) For Visit Diagnoses Date Provider Providers Copied on Encounter Office/outpat ient Visit, Est [facility], [address] [place] [address] [address], [place], [place], [id number], [place] tel:[phone] [facility] [place] No Information 0-201 0 Minerva Avalos [address] [facility] [address] [place] , [address], [place], [place], [facility], [place]. tel:[phone] Office/outpat ient Visit, Est [facility], [id number] [place] [address] [address], [place], [place], [id number], [place] tel:[phone] [facility] [place] No Information 7-200 9 Minerva Avalos [address] [facility] [address] [facility] , [address], [place], [address], [place]. tel:[phone] [facility], [address] [place] [address] [address], [place], [place], [id number], [place] tel:[phone] [facility] No Information Oct-2 2-200 9 Minerva Avalos [address] , [address], [place], [place], [facility], [place]. tel:[phone] [facility] Eye [facility], [address] [place] [address] [address], [place], [place], [id number], [place] tel:[phone] SEC [facility] No Information May-0 7-200 9 Minerva Avalos [address] , [address], [place], [place], [facility], [place]. tel:[phone] Referring Provider: Sylvia Martinez, [address], [place], [place], [facility]. tel:[phone] [facility], [address] [place] [address] [address], [place], [place], [id number], [place] tel:[phone] SEC [facility] No Information Oct-1 6-200 8 Minerva Avalos [address] , [address], [place], [facility], [place]. tel:[phone] Office/outpat ient Visit, [facility] Eye [facility], [address] [place] [address] [address], [place], [place], [id number], [place] tel:[phone] [facility] No Information Apr-1 7-200 8 Minerva Avalos [address] , [address], [place], [facility], [place]. tel:[phone] [facility] Eye [facility], [address] [place] [address] [address], [place], [place], [id number], [place] tel:[phone] SEC [facility] No Information Oct-2 9-200 7 Minerva Avalos [address] , [address], [place], [facility], [place]. tel:[phone] Referring Provider: Sylvia Martinez, [address], [place], [address]. tel:[phone] [facility], [address], [place], [place], [id number], [place] tel:[phone] SEC [facility] [place] No Information [address] [facility] , [address], [place], [address], [place]. tel:[phone] Family History Family Member Type Diagnosis Age At Onset No Information Payers Payer name Insurance type Covered green party ID Authoriza tion(s) [employer] CI [id number] Social History Type Description Quantity Date Captured Comments Sex Male Smoking Status No Information Chief Complaint And Reason For Visit No Information Reason For Referral Reason For Referral No Information History Of Present Illness Encounter Date Complaint History Of Prese nt Illness No Information Functional Status Date Functional Assessmen t No Information Instructions Date Instruction Additional Infor mation No Information Assessments Type Assessment Date No Information Patient Care Teams Name Effective Dates (start - stop) Status Members No Information
--- OUTSIDE RECORDS SUMMARY | 2025-02-12 10:18 | XMS_ITS | Data Portability ---
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 He had a cortisone shot in his right knee for half months ago on October 07 and it was very helpful until the last Few weeks. He would like another cortisone shot today in the right knee. X-rays today show no change in the moderate lateral compartment osteoarthritis compared with x-rays from 1 year ago. On exam today is a mild effusion right knee 5-130 degrees. Moderate tenderness over the lateral joint line. Impression: Patient has moderate lateral compartment osteoarthritis in the right knee would like another cortisone shot today. Risk of side effects including risk of infection discussed. He gets very good relief from the cortisone shots and is content with this approach. After ChloraPrep prep, 20 mg of Kenalog and 4 cc of 0.5% ropivacaine were injected into the right knee without difficulty. He would like to follow-up in 3 months. [email or web address] Not available 02/17/2023 10:16:46 05/12/2023 05/12/2023 HPI: Patient returns. He is here for cortisone injection right knee. He has moderately severe lateral compartment osteoarthritis. Last shot was 3 months ago. he got 2 and half months good relief from the injection and wishes to continue with them. He remains on meloxicam 15 mg daily. Physical exam: 82-year-old male very alert pleasant. He has to minimal effusion in the right knee. Range of motion is from 5-130 degrees. Mild tenderness over lateral joint line to palpation. After ChloraPrep was used on skin 20 mg Kenalog and 3 cc of 0.5% ropivacaine was injected into the right knee risk infection discussed. Impression: 82-year-old male who has moderately severe lateral compartment osteoarthritis in the right knee. Shots continue to work well for him and he wishes to continue with these. We will see him back in 3 months. Not available 05/12/2023 09:29:50 08/11/2023 08/11/2023 HPI: Patient returns. She is here for cortisone injection right knee. Last shot 3 months ago. Got excellent from the injection. He has moderate compartment osteoarthritis in the right knee. He was to have another injection today. Physical exam: 82-year-old male very alert pleasant. Appears younger than his stated age. He walks very well without limp or assistance. He has just trace effusion right knee. Range of motion is from 3-135 degrees. Some mild tenderness over the lateral joint line. Swelling in either extremity. ChloraPrep was used on skin 20 mg Kenalog and 3 cc of 0.5% ropivacaine was injected into the right knee. Risk of infection discussed. Impression: 82-year-old male who has moderate lateral compartment osteoarthritis in the right knee the last shot worked very well for him at this point is having minimal symptoms. He is going to wait and see how the shot does for him and he will call when he feels another injection is needed. Not available 08/11/2023 09:15:38 12/29/2023 12/29/2023 HPI colon. Patient returns. He is here for injection in the right knee. Last injection was in July of last year. He got excellent relief up until a couple weeks ago. He has moderately severe lateral compartment osteoarthritis in the knee. He would like to have another injection today. The physical exam: patient is alert. He walks very well without limp or Assistance. He has a mild effusion in the right knee. Range of motion is 10-135, he has mild turners over the level joint line. No swelling in either lower extremity. After Betadine and alcohol prep 20 mg of Kenalog and 3 cc of hand percent ropivacaine was injected into the right knee. Impression: patient continues to get good relief from injections in the right knee. You will call when he feels he needs additional injection. Not available 12/29/2023 09:59:51 Plan of Treatment Reminders Order Date Submit Date Provider Last Modified By Organization Details Last Modified Time Details Appointments None recorded. Lab None recorded. Referral None recorded. Procedures injection/a spiration joint/bursa (PROC) - in office procedure, administere d by provider 2023 024 In-Office Order, Internal Use Only DO Not Attach Compendium DO Not Attach Compendium, Do Not Delete/merge, [id number] 09:43:50 injection/a spiration joint/bursa (PROC) - in office procedure, administere d by provider 2022 023 [email or web address] In-Office Order, Internal Use Only DO Not Attach Compendium DO Not Attach Compendium, Do Not Delete/merge, [id number] 3 09:05:48 injection/a spiration joint/bursa (PROC) - in office procedure, administere d by provider 2022 023 In-Office Order, Internal Use Only DO Not Attach Compendium DO Not Attach Compendium, Do Not Delete/merge, [id number] 3 08:57:05 injection/a spiration joint/bursa (PROC) - in office procedure, administere d by provider 2022 023 [email or web address] In-Office Order, Internal Use Only DO Not Attach Compendium DO Not Attach Compendium, Do Not Delete/merge, [id number] 09:39:49 Surgeries None recorded. Imaging XR, knee 2022 023 [email or web address] [facility], [address], [place], [address], 3 15:22:34 Medication Orders Kenalog 10 mg/mL suspension for injection 2023 024 [email or web address] [facility] #[id number], [address], [place], [address], 4 14:13:50 ropivacaine (PF) 5 mg/mL (0.5 %) injection solution 2023 024 [email or web address] [address] [id number], [address] [place], [address], 4 14:13:50 Kenalog 10 mg/mL suspension for injection [address]/Pharmacy #[id number], [address] [place], [address], 3 09:15:03 ropivacaine (PF) 5 mg/mL (0.5 %) injection solution 2022 023 [email or web address] Not available 3 15:30:34 Kenalog 10 mg/mL suspension for injection [address]/Pharmacy #[id number], [address] [place], [address], 3 09:04:23 ropivacaine (PF) 5 mg/mL (0.5 %) injection solution [address]/Pharmacy #[id number], [address] [place], [address], 3 09:04:27 Kenalog 10 mg/mL suspension for injection 2022 023 [email or web address] [address] [id number], [address] [place], [address], 3 09:04:23 ropivacaine (PF) 5 mg/mL (0.5 %) injection solution [address]/Pharmacy #[id number], [address] [place], [address], 3 09:04:27 Patient TargetsNo targets recorded. Patient InstructionsNo instructions recorded. Reason for Referral None Reported. Results Created Date Observation Date Name Description Value Unit Range Abnormal Flag Note LastModifiedBy Organization Detail LastModifiedTime 02/18/20 XR, knee No observ ation record ed. [facility] [address], [place], [address], 02/17/2023 09:38:15 Result Notes None recorded. Problems Name Problem SNOMED Code Status Onset Date Resolution Date Notes Provider Name and Address Organization Details Recorded Time Current tear of medial cartilage AND/OR meniscus of knee Active Not Available [facility] 3 12:56:32 Osteoarthr itis 837155084 Active Not Available [facility] 3 12:56:32 Pain of right knee joint 2208689823196 00 Active 2021 Not Available [facility] 3 12:56:32 Osteoarthr itis of right knee joint 3053445215807 00 Active 2022 DESTINEY Juarez, [place] - [facility] 09:39:37 Problem Notes None recorded. Procedures Surgical History None recorded. Imaging Results Imaging Date Name Status LastModified by Organiz ation Details LastModified Time 02/17/2023 XR, knee completed [email or web address] [facility] [address], [place], [address], 02/17/2023 09:38:15 Procedure Notes None recorded. Medical Equipment None Reported. Allergies No known drug allergies Medications Name Sig Start Date Stop Date Status Note LastModified by Organization Details LastModified Time latanoprost 0.005 % eye drops 02/02 completed Not Available Not Available Not Available albuterol sulfate 2.5 mg/3 mL (0.083 %) solution for nebulizatio n INHALE CONTENTS OF 1 VIAL VIA NEBULIZER EVERY 6 HOURS NEEDED FOR SHORTNESS OF BREATH OR WHEEZING active Not Available Not Available No t Available azithromyci n 250 mg tablet TAKE 2 TABLETS BY MOUTH TODAY, THEN TAKE 1 TABLET DAILY FOR 4 DAYS DIRECTED 12/28 completed Not Available Not Available Not Available hydrocodone 5 mg-acetamin ophen 325 mg tablet 02/02 completed Not Available Not Available Not Available meloxicam 15 mg tablet TAKE 1 TABLET BY MOUTH EVERY DAY active Not Available Not Available No t Available bupivacaine HCl 0.5 % (5 mg/mL) injection solution In office injection administe red by the provider 05/20 completed Not Available Not Available Not Available prednisone 20 mg tablet TAKE 2 TABLETS BY MOUTH DAILY X5 DAYS 12/28 completed Not Available Not Available Not Available simvastatin 10 mg tablet 02/02 completed Not Available Not Available Not Available amlodipine 5 mg tablet TAKE 1 TABLET BY MOUTH EVERY DAY active Not Available Not Available No t Available tamsulosin 0.4 mg capsule TAKE 2 CAPSULES BY MOUTH DAILY active Not Available Not Available No t Available Kenalog 10 mg/mL suspension for injection in office 2023 active [facility]: 0003- 0494- 20 Not Available Not Available Not Available diclofenac sodium 75 mg tablet,stephanie yed release 02/02 completed Not Available Not Available Not Available zolpidem 5 mg tablet 02/02 completed Not Available Not Available Not Available levofloxaci n 500 mg tablet TAKE 1 TABLET BY MOUTH EVERY DAY FOR 7 DAYS active Not Available Not Available No t Available zolpidem 10 mg tablet TAKE 1 TABLET BY MOUTH EVERY DAY AT BEDTIME NEEDED FOR INSOMNIA active Not Available Not Available No t Available methylpredn isolone 4 mg tablets in a dose pack TAKE 6 TABLETS ON DAY 1 DIRECTED ON PACKAGE AND DECREASE BY 1 TAB EACH DAY FOR A TOTAL OF 6 DAYS 12/28 completed Not Available Not Available Not Available timolol maleate 0.5 % eye drops 02/02 completed Not Available Not Available Not Available celecoxib 100 mg capsule 02/02 completed Not Available Not Available Not Available cefdinir 300 mg capsule TAKE 1 CAPSULE BY MOUTH TWICE A DAY 12/28 completed Not Available Not Available Not Available doxycycline hyclate 100 mg tablet TAKE 1 TABLET BY MOUTH TWICE A DAY X7 DAYS 12/28 completed Not Available Not Available Not Available finasteride 5 mg tablet TAKE 1 TABLET BY MOUTH EVERY DAY active Not Available Not Available No t Available lidocaine (PF) 5 mg/mL (0.5 %) injection solution In office injection administe red by the provider 10/07 completed Not Available Not Available Not Available ropivacaine (PF) 5 mg/mL (0.5 %) injection solution in office 2023 active [facility] 59913 -064- 01 Not Available Not Available Not Available Spiriva Respimat 2.5 mcg/actuati on solution for inhalation INHALE 2 PUFFS BY MOUTH DAILY active Not Available Not Available No t Available Stiolto Respimat 2.5 mcg-2.5 mcg/actuati on solution for inhalation INHALE 1 PUFF TWICE A DAY active Not Available Not Available No t Available Vitals Date Recorded Body height Provider Name an d Address Organization Details Last Updated DateTime 10/07/2022 165.1 cm Not Available [facility] 12:55:37 Date Recorded Body height Body mass index (BMI) Body weight Provider Name and Address Organization Details Last Updated DateTime 02/17/2023 162.56 cm 26.4 kg/m2 17778.22 g Chelsy Acosta [facility] [employer] [facility] 02/17/2023 09:41:39 Date Recorded Body height Provider Name an d Address Organization Details Last Updated DateTime 05/12/2023 162.56 cm Chelsy Acosta [facility] [employer] [facility] 05/12/2023 08:55:51 Date Recorded Body height Provider Name an d Address Organization Details Last Updated DateTime 08/11/2023 162.56 cm Serena Vital [facility] [employer] [facility] 08/11/2023 09:00:35 Date Recorded Body height Provider Name an d Address Organization Details Last Updated DateTime 12/29/2023 162.56 cm Chelsy Acosta [facility] [employer] [facility] 12/29/2023 09:41:05 Social History Question Answer Notes LastModified by Organizat ion Details LastModified Time Tobacco Smoking Status Former Smoker quit 1977 Not Available [facility] 12/22/2022 12:53:11 What Is Your Level Of Alcohol Consumption? Moderate [id number] Information not available 12/22/2022 When Did You Quit Smoking? 16+yearssince lastcigarette [id number] Information not available 12/22/2022 Sex: Unknown Functional Status None recorded. Mental Status None recorded. Family History Relationship Description Onset Age of this Age Resolved Age Notes LastModified by Organization Details LastModified Time Brother Family history of malignant neoplasm [id number] Not available 12/22/2022 12:53:22 Mother Hypertensive disorder [id number] Not available 12/22/2022 12:53:22 Medical History Condition Response BLINDNESS N KIDNEY STONES N CARPAL TUNNEL SYNDROME N MRSA N LUNG DISEASE/DISORDER N HISTORY OF DRUG ABUSE N RADIATION / CHEMOTHERAPY N COPD Y ANKLE PAIN N SPORTS INJURY N BLOOD DISEASES N SCHIZOPHRENIA N SHINGLES N BOWEL PROBLEMS N DEPRESSION (INCLUDING POST ) N SHOULDER PAIN N STROKE/TIA N ULCERS N KNEE PAIN N BENIGN PROSTATIC HYPERPLASIA N OBESITY N GERD/NAUSEA N ANEURYSM N URINARY/BLADDER/KIDNEY PROBLEMS N CORONARY ARTERY DISEASE (CAD) N ADDICTION CONCERNS N USE OF BLOOD THINNERS N SKIN PROBLEMS N EMPHYSEMA N MUSCLE,JOINT OR BONE PROBLEMS N DVT N STOMACH ULCERS N BLOOD CLOTS N USE OF NSAIDS N CONCUSSION OR SPINAL TRAUMA N NEUROPATHY N AIDS/HIV N FRACTURES N HYPERTENSION N ELBOW PAIN N TOURETTE'S N Metal allergy N ANXIETY DISORDER N BLOOD TRANSFUSION N ANEMIA/BLOOD DISORDER N BIPOLAR DISORDER N BRONCHITIS N OSTEOARTHRITIS N TUBERCULOSIS N FOOT PROBLEM N HEART VALVE DISORDERS N ALLERGIES/HAYFEVER N SOFT TISSUE INJURY N INFECTIOUS DISEASE N HEART ARRHYTHMIA N INSOMNIA N HIGH CHOLESTEROL / HYPERLIPIDEMIA N RHEUMATOID ARTHRITIS N EDEMA N CHRONIC PAIN SYNDROME N CAROTID BLOCKAGE N BACK / NECK PROBLEMS N HAVE YOU BEEN HOSPITALIZED OR SEEN IN [facility] ER IN THE PAST YEAR ? N BURSITIS N HERNIATED DISC N DIALYSIS N FIBROMYALGIA N OSTEOPOROSIS N ARTHRITIS Y NO SIGNIFICANT PAST MEDICAL HISTORY N PERIPHERAL NEUROPATHY N DIABETES, TYPE N HEARTBURN / REFLUX N HEPATITIS / LIVER DISEASE N GOUT N ALZHEIMER'S DISEASE N SLEEP DISORDER N HERPES N HEADACHES/MIGRAINES N SEIZURES/EPILEPSY N VASCULAR DISEASE N Blood Disorder N HIP PAIN N DIZZINESS N HEAD TRAUMA OR INJURY N HEART DISEASE/HEART PROBLEMS N MULTIPLE SCLEROSIS N CANCER: SPECIFY N CARDIAC ARRHYTHMIA N ANESTHESIA COMPLICATIONS N ATRIAL FIBRILLATION N AUTOIMMUNE DISEASE N Past Encounters Encounter ID Performer Location Encounter Start Date Encounter Closed Date Diagnosis/Indication Diagnosis SNOMED-CT Code Diagnosis ICD10 Code Diagnosis Note [id number] [facility] [address] [address] 02/11/2022 00:00:00 02/11/2022 10:38:48 [id number] [facility] [address] [address] 05/20/2022 00:00:00 05/20/2022 09:35:20 [id number] [facility] [place] [address] 10/07/2022 00:00:00 10/07/2022 09:59:21 [id number] Clay Mckee MD [facility] [place] [address] 9 02/17/2023 09:21:41 02/17/2023 10:20:29 Osteoarthritis of right knee joint 3811075369 13884 M17.11 [id number] GINA Salguero [facility] [place] [address] 9 05/12/2023 08:50:58 05/12/2023 09:30:17 Osteoarthritis of right knee joint 0605580644 52607 M17.11 [id number] GINA Salguero [facility] [place] [address] 9 08/11/2023 08:53:52 08/11/2023 09:41:33 Osteoarthritis of right knee joint 6484424903 35903 M17.11 [id number] GINA Salguero [facility] [address] [address] 12/29/2023 09:35:01 12/29/2023 10:12:36 Osteoarthritis of right knee joint 1495483191 74256 M17.11 Health Concerns Section Related Observation LastModified by Organization Detai ls LastModified Time None Recorded Concern Status LastModified by Organization Details LastModified Time None Recorded Advance Directives Directive None Recorded Payers Encounter Date Sequence Insurance Name Policy Number Policy Iniguez Covered Member ID Iniguez Member ID Guarantor Name 02/17/2023 1 [facility] (MEDICARE REPLACEMENT HMO) [id number] Aubrey Tracy [id number] Aubrey Tracy 05/12/2023 1 [employer] [facility] (MEDICARE REPLACEMENT HMO) [id number] Aubrey Trcay [id number] Aubrey Tracy 08/11/2023 1 [employer] [facility] (MEDICARE REPLACEMENT HMO) [id number] Aubrey Tracy [id number] Aubrey Tracy 12/29/2023 1 [facility] (MEDICARE REPLACEMENT HMO) [id number] Aubrey Tracy [id number] Aubrey Tracy
--- OUTSIDE RECORDS SUMMARY | 2025-02-12 10:18 | XMS_ITS | CONTINUITY OF CARE DOCUMENT ---
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 HMO Other [id number]
--- NOTE | 2025-02-12 10:38 | ED_ITS ---
HPI - Male Genitourinary General Chief complaint: Urogenital-Male Stated complaint: urinary issues, requesting catheter Time Seen by Provider: 02/12/25 09:24 Source: patient Mode of arrival: ambulatory Limitations: no limitations History of Present Illness HPI Narrative: This is an 84-year-old male that presents to the emergency department for urinary retention. Reports the last time he urinated was sometime last night. He has had a similar issue several times before. Reports he does take tamsulosin that was prescribed by urologist. Denies fever, abdominal pain, vomiting, flank pain. Related Data Home Medications ?Medication ?Instructions ?Recorded ?Confirmed ?Last Taken ?Type levofloxacin 500 mg tablet 500 mg PO DAILY 09/10/24 12/12/24 Unknown History Allergies Allergy/AdvReac Type Severity Reaction Status Date / Time No Known Allergies Allergy Verified 02/12/25 09:31 Review of Systems Review of Systems: CONSTITUTIONAL: Denies fever GASTROINTESTINAL: Denies abdominal pain, nausea, vomiting GENITOURINARY: Denies dysuria All systems reviewed & are unremarkable except as noted in HPI and below PMFSH Past Medical History Medical History Urinary retention Acute dermatitis Body mass index [BMI] 26.0-26.9, adult (07/22/17) Body mass index [BMI] 27.0-27.9, adult (02/01/17) Body mass index [BMI] 31.0-31.9, adult (05/18/16) Bronchitis Coughing Enlarged prostate without lower urinary tract symptoms (luts) URI, acute Wheezing Encounter for immunization Contact dermatitis HLD (hyperlipidemia) Surgical History Surgical History History of skin surgery 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 No problems noted. Sibling Acute myocardial infarction Social History Social History (Updated 12/12/24 @ 14:49 by Beverley Fitzgerald CMA) Smoking status: Former smoker Second hand tobacco smoke exposure: Yes Smoking end date: 10/24/77 Alcohol intake: former Alcohol use details: last alcohol use 05/2023 Substance use: never Substance use type: does not use Current Housing: Decline to Answer Concerned About Future Housing: Decline to Answer Difficulty Paying Gas/Electric Bills: Decline to Answer Difficulty Paying for Meds: Decline to Answer Currently Unemployed: Decline to Answer Education: Decline to Answer Difficulty w/ Childcare or Family Care: Decline to Answer Living arrangements: with family 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 HEAD: Normocephalic, atraumatic. EYES: EOMI. CHEST: Clear to auscultation. No respiratory distress. No wheezes rales or rhonchi HEART: Regular rate and rhythm. No murmur heard. Normal peripheral pulses. ABDOMEN: Soft, nontender, nondistended, normal active bowel sounds. EXTREMITIES: Normal range of motion. No edema. SKIN: Warm, dry, no rash. NEURO: No focal deficits. Alert and oriented x3. PSYCH: Normal mood and affect Course Course Emergency Course: Patient feels much better after catheter being placed and bladder drained, pink urine draining Vital Signs Vital signs: Vital Signs Temperature 98.2 F 02/12/25 09:28 Pulse Rate 83 02/12/25 09:28 Respiratory Rate 16 02/12/25 09:28 Blood Pressure 152/74 H 02/12/25 09:28 Pulse Oximetry 96 02/12/25 09:28 Oxygen Delivery Room Air 02/12/25 09:28 Temperature 98.2 F 02/12/25 09:28 Pulse Rate 80 02/12/25 11:40 Respiratory Rate 16 02/12/25 11:40 Blood Pressure 143/71 H 02/12/25 11:40 Pulse Oximetry 97 02/12/25 11:40 Oxygen Delivery Room Air 02/12/25 09:28 MDM - Male Genitourinary MDM Narrative Medical decision making narrative: Patient presents the emergency department for urinary retention since last night. Patient was noted to have 800 cc on bladder scan. Motta catheter placed. Patient reports feeling much better. Urine without evidence of infection. He has known history of BPH and has had similar issues in the past. Denies any fevers, abdominal pain, flank pain, vomiting. Will be given follow- up with urology. He was given warnings to return to the ER Differential Diagnosis Differential diagnosis: Likely urinary tract infection and acute retention of urine Lab Data Attestation: I reviewed the patient's lab results. Labs: Lab Results 02/12/25 Range/Units 10:12 Urine Color Yellow (Yellow) Urine Appearance Clear (Clear) Urine pH 5.5 (5.0-9.0) Ur Specific [place] 1.007 (1.001-1.035) Urine Protein Negative (Negative) mg/dL Urine Glucose (UA) Negative (Negative) mg/dL Urine Ketones Negative (Negative) mg/dL Ur Blood (Man) 3+ H (Negative) Urine Nitrate Negative (Negative) Urine Bilirubin Negative (Negative) Urine Urobilinogen 0.2 (<2.0) mg/dL Leukocyte Esterase Rfl Negative (Negative) RITESH/UL Urine RBC 0-2 (0-2) /hpf Urine WBC 0-5 (0-3) /hpf Ur Squamous Epith Cells None seen (Few) /hpf Urine Bacteria None seen /hpf Urine Casts 0-2 Critical Care Time Critical Care Time Critical Care Time: No Discharge Plan Discharge Clinical Impression: Urinary retention Patient Disposition: Home Condition: Improved Instructions: Urinary Retention in Men (ED), Motta Catheter Placement and Care (ED) Additional Instructions: Return to the ER if you experience fever, abdominal pain with nausea and vomiting, you are unable to keep down liquids or solids, blood in the urine or any other symptoms that are concerning to you Follow up with urology Patient Language: Bahamian Prescriptions: No Action levofloxacin 500 mg tablet 500 mg PO DAILY tamsulosin [Flomax] 0.4 mg capsule 0.4 mg PO DAILY 14 Days Qty: 14 0RF furosemide [Lasix] 20 mg tablet 20 mg PO DAILY Qty: 14 0RF finasteride 5 mg tablet See Rx Instructions .ROUTE .COMPLEX Qty: 90 2RF Dose Instruction: TAKE 1 TABLET BY MOUTH EVERY DAY Rx Instructions: TAKE 1 TABLET BY MOUTH EVERY DAY zolpidem 10 mg tablet 10 mg PO QHS Qty: 90 0RF meloxicam 15 mg tablet See Rx Instructions .ROUTE .COMPLEX Qty: 90 2RF Dose Instruction: TAKE 1 TABLET BY MOUTH EVERY DAY Rx Instructions: TAKE 1 TABLET BY MOUTH EVERY DAY amlodipine 5 mg tablet See Rx Instructions .ROUTE .COMPLEX Qty: 90 2RF Dose Instruction: TAKE 1 TABLET BY MOUTH EVERY DAY Rx Instructions: TAKE 1 TABLET BY MOUTH EVERY DAY Follow-up/Referrals: Crispin Harmon MD [Physician] - Davie Lewis MD [Primary Care Provider] -
[2025-02-12 10:41] VITALS: BP 146/68; PULSE 76; RESP 16; O2SAT 96
[2025-02-12 10:43] LABS: Add Urine Microscopic? YES; Appearance Urine Clear (Clear); Bacteria Urine None Seen /hpf; Bilirubin Urine Negative (Negative); Blood Urine 3+ (Negative); Color Urine Yellow (Yellow); Glucose Urine UA Negative (Negative); Ketones Urine Negative (Negative); Leukocyte Esterase Ur Negative LEU/UL (Negative); Nitrate Urine Negative (Negative); Non Pathogenic Casts 0-2; Protein Urine Negative (Negative); RBC Urine 0-2 /hpf (0-2); Specific Grav Ur 1.007 (1.001-1.035); Squamous Epithelial Cell Urine None Seen /hpf (Few); Urobilinogen Urine 0.2 mg/dL (<2.0); WBC Urine 0-5 /hpf (0-3); pH Urine 5.5 (5.0-9.0)
[2025-02-12 11:40] VITALS: BP 143/71; PULSE 80; RESP 16; O2SAT 97
[2025-02-12 12:00] VITALS: BP 136/80; PULSE 84; RESP 16; O2SAT 98
--- OUTSIDE RECORDS SUMMARY | 2025-02-12 12:22 | XMS_ITS | Continuity of Care Document ---
Author Organization [facility] Address [address] [place] [address] [place] [address] Phone Care Team Providers Care Vice President Fixed Income Name Role Phone Sylvia Palma Unavailable Unavailable [...] Copied on Encounter Office/outpat ient Visit, Est [facility], [address] [place] [address] [address], [place], [place], [address], [place] tel:[phone] [facility] [place] No Information 0-201 0 Minerva Avalos [address] [facility] [place] , [address], [place], [place], [facility], [place]. tel:[phone] Office/outpat ient Visit, Est [facility], [address] [place] [address] [address], [place], [place], [address], [place] tel:[phone] [facility] [place] No Information 7-200 9 Minerva Avalos [address] [facility] , [address], [place], [address], [place]. tel:[phone] [facility], [address] [place] [address] [address], [place], [place], [address], [place] tel:[phone] [facility] No Information Oct-2 2-200 9 Minerva Avalos [address] [facility] , [address], [place], [facility], [place]. tel:[phone] [facility], [address] [place] [address] [address], [place], [place], [address], [place] tel:[phone] SEC [facility] No Information May-0 7-200 9 Minerva Avalos [address] , [address], [place], [facility], [place]. tel:[phone] Referring Provider: Sylvia Martinez, [address] [facility] [address], [place], [facility]. tel:[phone] [facility], [address] [place] [address] [address], [place], [place], [address], [place] tel:[phone] [facility] No Information Oct-1 6-200 8 Minerva Avalos [address] , [address], [place], [facility], [place]. tel:[phone] Office/outpat ient Visit, [facility], [address] [place] [address] [address], [place], [place], [address], [place] tel:[phone] [facility] No Information Apr-1 7-200 8 Minerva Avalos [address] , [address], [place], [facility], [place]. tel:[phone] [facility], [address] [place] [address] [address], [place], [place], [address], [place] tel:[phone] [facility] No Information Oct-2 9-200 7 Minerva Avalos [address] , [address], [place], [facility], [place]. tel:[phone] Referring Provider: Sylvia Martinez, [address], [place], [address]. tel:[phone] [facility], [address], [place], [place], [address], [place] tel:[phone] [facility] [place] No Information 4200 7 Minerva Ward. [address] [facility] , [address], [place], [address], [place]. tel:[phone] Family History Family Member Type Diagnosis Age At Onset No Information Payers Payer name Insurance type Covered libertarian ID Authoriza tion(s) [employer] Md[employer] Adv CI [id number] Social History Type Description Quantity Date Captured [...]
--- OUTSIDE RECORDS SUMMARY | 2025-02-12 12:22 | XMS_ITS | CONTINUITY OF CARE DOCUMENT ---
Author Name mio lieberman Address Unknown Organization [facility] Office Address [address] [facility] [address] [place] [address] Phone [phone] Care Team Providers Care Mill Operator Name Role Phone Douglas Griggs MD Unavailable [phone] Douglas Griggs MD Unavailable [phone] INSURANCE PROVIDERS Payer name Policy type / Coverage type [place] red republican ID [facility] H[facility] Other .[id number]
== END 2025-02-12 13:01 | disposition home or self-care (01) ==
PROVIDERS: Emergency Provider Physician Assistant; PCP Emergency Medicine
DX: R33.9 Retention of urine, unspecified (principal); E78.5 Hyperlipidemia, unspecified
CPT/HCPCS: 51700; 81001; 99283

== ENCOUNTER 2025-02-28 05:58 | Emergency (ER) | payer OTHER, SELFPAY ==
--- OUTSIDE RECORDS SUMMARY | 2025-02-28 06:00 | XMS_ITS | Continuity of Care Document ---
Author Organization [facility] Address [address] [place] [address] [place] [address] Phone Care Team Providers Care Egg Packer Name Role Phone Sylvia Palma Unavailable Unavailable [...] on Encounter Office/outpat ient Visit, Est [facility], [address] [place] [address] [address], [place], [place], [address], [place] tel:[phone] SEC [facility] [place] No Information 0-201 0 Minerva Avalos [address] [facility] [place] , [address], [place], [facility], [place]. tel:[phone] Office/outpat ient Visit, Est [facility], [address] [place] [address] [address], [place], [place], [address], [place] tel:[phone] SEC [facility] [place] No Information 7-200 9 Minerva Avalos [address] [facility] , [address], [place], [address], [place]. tel:[phone] [facility], [address] [place] [address] [address], [place], [place], [address], [place] tel:[phone] SEC [facility] No Information Oct-2 2-200 9 Minerva Avalos [address] , [address], [place], [facility], [place]. tel:[phone] [facility] Eye [facility], [address] [place] [address] [address], [place], [place], [address], [place] tel:[phone] SEC [facility] No Information May-0 7-200 9 Minerva Avalos [address] , [address], [place], [facility], [place]. tel:[phone] Referring Provider: Sylvia Martinez, [address] [facility] [address], [place], [facility]. tel:[phone] [facility], [address] [place] [address] [address], [place], [place], [address], [place] tel:[phone] [facility] No Information Oct-1 6-200 8 Minerva Avalos [address] , [address], [place], [facility], [place]. tel:[phone] Office/outpat ient Visit, [facility], [address] [place] [address] [address], [place], [place], [address], [place] tel:[phone] SEC [facility] No Information Apr-1 7-200 8 Minerva Avalos [address] , [address], [place], [facility], [place]. tel:[phone] [facility], [address] [place] [address] [address], [place], [place], [address], [place] tel:[phone] SEC [facility] No Information Oct-2 9-200 7 Minerva Avalos [address] , [address], [place], [facility], [place]. tel:[phone] Referring Provider: Sylvia Martinez, [address], [place], [address]. tel:[phone] [facility], [address], [place], [place], [address], [place] tel:[phone] SEC [facility] [place] No Information 4200 7 Minerva Ward. [address] [facility] , [address], [place], [address], [place]. tel:[phone] Family History Family Member Type Diagnosis Age At Onset No Information Payers Payer name Insurance type Covered libertarian ID Authoriza tion(s) Ad[employer] Mdcr Adv CI [id number] Social History Type Description Quantity Date Captured [...]
--- OUTSIDE RECORDS SUMMARY | 2025-02-28 06:00 | XMS_ITS | CONTINUITY OF CARE DOCUMENT ---
Author Name mio lieberman Address Unknown Organization [facility] Office Address [address] [facility] [address] [place] [address] Phone [phone] Care Team Providers Care Farm Mechanic Name Role Phone Douglas Griggs MD Unavailable [phone] Douglas Griggs MD Unavailable INSURANCE PROVIDERS Payer name Policy type / Coverage type [place] red constitution party ID [facility] HMO Other .[id number]
--- OUTSIDE RECORDS SUMMARY | 2025-02-28 06:01 | XMS_ITS | Data Portability ---
Author Organization [facility] Main Office Address [address] [place] [address] Care Team Providers Care Roofer Vinyl Coating Name Role Phone YOVANNY SALAZAR Primary Care Provider [phone] YOVANNY SALAZAR Referring Provider Assessment Encounter Date [...] procedure, administere d by provider 2023 024 [email or web address] In-Office Order, Internal Use Only DO Not Attach Compendium DO Not Attach Compendium, Do Not Delete/merge, [id number] 4 09:43:50 injection/a spiration joint/bursa (PROC) - in office procedure, administere d by provider 2022 023 [email or web address] In-Office Order, Internal Use Only DO Not Attach Compendium DO Not Attach Compendium, Do Not Delete/merge, [id number] 3 09:05:48 injection/a spiration joint/bursa (PROC) - in office procedure, administere d by provider 2022 023 [email or web address] In-Office Order, Internal Use Only DO Not Attach Compendium DO Not Attach Compendium, Do Not Delete/merge, [id number] 3 08:57:05 injection/a spiration joint/bursa (PROC) - in office procedure, administere d by provider 2022 023 [email or web address] In-Office Order, Internal Use Only DO Not Attach Compendium DO Not Attach Compendium, Do Not Delete/merge, [id number] 3 09:39:49 Surgeries None recorded. Imaging XR, knee 2022 023 [email or web address] [facility], [address], [place], [address], 3 15:22:34 Medication Orders Kenalog 10 mg/mL suspension for injection 2023 024 [email or web address] [facility] #[id number], [address], [place], [address], 4 14:13:50 ropivacaine (PF) 5 mg/mL (0.5 %) injection solution 2023 024 [place] [address] [id number], [address] [place], [address], 4 14:13:50 Kenalog 10 mg/mL suspension for injection [address]/Pharmacy #[id number], [address] [place], [address], 3 09:15:03 ropivacaine (PF) 5 mg/mL (0.5 %) injection solution 2022 023 [email or web address] Not available 3 15:30:34 Kenalog 10 mg/mL suspension for injection [address]/Pharmacy #[id number], [address] [place], [address], 3 09:04:23 ropivacaine (PF) 5 mg/mL (0.5 %) injection solution [address]/[facility] #[id number], [address] [place], [address], 3 09:04:27 Kenalog 10 mg/mL suspension for injection 2022 023 [place] [address] [id number], [address] [place], [address], 3 09:04:23 ropivacaine (PF) 5 mg/mL (0.5 %) injection solution [address]/[facility] #[id number], [address] [place], [address], 3 09:04:27 Patient TargetsNo targets recorded. Patient InstructionsNo instructions recorded. Reason for Referral None Reported. Results Created Date Observation Date Name Description Value Unit Range Abnormal Flag Note LastModifiedBy Organization Detail LastModifiedTime 02/18/20 XR, knee No observ ation record ed. [email or web address] [facility] [address], [place], [address], 02/17/2023 09:38:15 Result Notes None recorded. Problems Name Problem SNOMED Code Status Onset Date Resolution Date Notes Provider Name and Address Organization Details Recorded Time Current tear of medial cartilage AND/OR meniscus of knee Active Not Available [facility] 3 12:56:32 Osteoarthr itis 053637668 Active Not Available [facility] 3 12:56:32 Pain of right knee joint 0285442006623 00 Active 2021 Not Available [facility] 3 12:56:32 Osteoarthr itis of right knee joint 7828895353916 00 Active 2022 DESTINEY Juarez, [place] - [facility] 09:39:37 Problem Notes None recorded. Procedures Surgical History None recorded. Imaging Results Imaging Date Name Status LastModified by Organiz ation Details LastModified Time 02/17/2023 XR, knee completed [email or web address] [facility] [address], [place], [address], 02/17/2023 09:38:15 Procedure Notes None recorded. Medical [...] suspension for injection in office 2023 active [facility]: 0003- 0494- 20 Not Available Not Available [...] %) injection solution in office 2023 active [facility] 17203 -064- 01 Not Available Not Available Not [...] Updated DateTime 10/07/2022 165.1 cm Not Available [facility] 12:55:37 Date Recorded Body height Body mass index (BMI) Body weight Provider Name and Address Organization Details Last Updated DateTime 02/17/2023 162.56 cm 26.4 kg/m2 03750.22 g Chelsy Acosta [facility] 02/17/2023 09:41:39 Date Recorded Body height Provider Name an d Address Organization Details Last Updated DateTime 05/12/2023 162.56 cm Chelsy Acosta [facility] My Own Med [facility] 05/12/2023 08:55:51 Date Recorded Body height Provider Name an d Address Organization Details Last Updated DateTime 08/11/2023 162.56 cm Serena Vital [facility] My Own Med [facility] 08/11/2023 09:00:35 Date Recorded Body height Provider Name an d Address Organization Details Last Updated DateTime 12/29/2023 162.56 cm Chelsy Acosta [facility] My Own Med [facility] 12/29/2023 09:41:05 Social History Question Answer Notes LastModified by Organizat ion Details LastModified Time Tobacco Smoking Status Former Smoker quit 1977 Not Available [facility] 12/22/2022 12:53:11 What Is Your Level Of Alcohol Consumption? Moderate [id number] Information not available 12/22/2022 When Did You Quit Smoking? 16+yearssince lastcigarette [id number] Information not available 12/22/2022 Sex: Unknown Functional Status None recorded. Mental Status None recorded. Family History Relationship Description Onset Age of this Age Resolved Age Notes LastModified by Organization Details LastModified Time Brother Family history of malignant neoplasm [id number] Not available 12/22/2022 12:53:22 Mother Hypertensive disorder [id number] Not available 12/22/2022 12:53:22 Medical History Condition Response BLINDNESS N KIDNEY STONES N MRSA N CARPAL TUNNEL SYNDROME N LUNG DISEASE/DISORDER N HISTORY OF DRUG ABUSE N RADIATION / CHEMOTHERAPY N COPD Y SPORTS INJURY N ANKLE PAIN N BLOOD DISEASES N SCHIZOPHRENIA N SHINGLES N SHOULDER PAIN N BOWEL PROBLEMS N DEPRESSION (INCLUDING POST ) N STROKE/TIA N ULCERS N KNEE PAIN [...] HAVE YOU BEEN HOSPITALIZED OR SEEN IN [facility] IN THE PAST YEAR ? [...] SNOMED-CT Code Diagnosis ICD10 Code Diagnosis Note [id number] MD LANETTE Zapien_[address] [address] 02/11/2022 00:00:00 02/11/2022 10:38:48 [id number] MD AZAR ZapienRyan [address] [address] 05/20/2022 00:00:00 05/20/2022 09:35:20 [id number] Clay Mckee MD [facility]_[address] [address] 10/07/2022 00:00:00 10/07/2022 09:59:21 [id number] Clay Mckee MD [address] [address] 02/17/2023 09:21:41 02/17/2023 10:20:29 Osteoarthritis of right knee joint 2538826246 52208 M17.11 [id number] Clay Mckee MD [address] [address] 05/12/2023 08:50:58 05/12/2023 09:30:17 Osteoarthritis of right knee joint 3971854062 36584 M17.11 [id number] Clay Mckee MD [address] [address] 08/11/2023 08:53:52 08/11/2023 09:41:33 Osteoarthritis of right knee joint 5609550501 93347 M17.11 [id number] Clay Mckee MD [facility]_[address] [address] 12/29/2023 09:35:01 12/29/2023 10:12:36 Osteoarthritis of right knee joint 8233480007 23684 M17.11 Health Concerns Section Related Observation LastModified by Organization Detai ls LastModified Time None Recorded Concern Status LastModified by Organization Details LastModified Time None Recorded Advance Directives Directive None Recorded Payers Encounter Date Sequence Insurance Name Policy Number Policy Iniguez Covered Member ID Iniguez Member ID Guarantor Name 02/17/2023 1 [facility] (MEDICARE REPLACEMENT HMO) [id number] Aubrey Tracy [id number] Aubrey Tracy 05/12/2023 1 [facility] (MEDICARE REPLACEMENT HMO) [id number] Aubrey Tracy [id number] Aubrey Tracy 08/11/2023 1 [facility] (MEDICARE REPLACEMENT HMO) [id number] Aubrey Tracy [id number] Aubrey Tracy 12/29/2023 1 [facility] (MEDICARE REPLACEMENT HMO) [id number] Aubrey Tracy [id number] Aubrey Tracy
[2025-02-28 06:05] VITALS: BP 135/83; PULSE 101; RESP 15; O2SAT 96
--- OUTSIDE RECORDS SUMMARY | 2025-02-28 06:22 | XMS_ITS | CONTINUITY OF CARE DOCUMENT ---
Author Name mio lieberman Address Unknown Organization [facility] Office Address [address] [facility] [address] [place] [address] Phone [phone] Care Team Providers Care Mixing Plant Dumper Name Role Phone Douglas Griggs MD Unavailable [phone] Douglas Griggs MD Unavailable INSURANCE PROVIDERS Payer name Policy type / Coverage type [place] red republican ID [facility] HMO Other .[id number]
--- OUTSIDE RECORDS SUMMARY | 2025-02-28 06:22 | XMS_ITS | Continuity of Care Document ---
Author Organization [facility] Address [address] [place] [address] [place] [address] Phone Care Team Providers Care Power System Dispatcher Name Role Phone Sylvia Palma Unavailable Unavailable [...] Copied on Encounter Office/outpat ient Visit, Est [facility], [address] [place] [address] [address], [place], [place], [address], [place] tel:[phone] [facility] [place] No Information 0-201 0 Minerva Avalos [address] [facility] [place] , [address], [place], [place], [facility], [place]. tel:[phone] Office/outpat ient Visit, Est [facility], [address] [place] [address] [address], [place], [place], [address], [place] tel:[phone] [facility] [place] No Information 7-200 9 Minerva Avalos [address] [facility] , [address], [place], [address], [place]. tel:[phone] [facility], [address] [place] [address] [address], [place], [place], [address], [place] tel:[phone] [facility] No Information Oct-2 2-200 9 Minerva Avalos [address] , [address], [place], [facility], [place]. tel:[phone] [facility], [address] [place] [address] [address], [place], [place], [address], [place] tel:[phone] [facility] No Information May-0 7-200 9 Minerva Avalos [address] , [address], [place], [facility], [place]. tel:[phone] Referring Provider: Sylvia Martinez, [facility] [address], [place], [facility]. tel:[phone] [facility], [address] [place] [address] [address], [place], [place], [address], [place] tel:[phone] [facility] No Information Oct-1 6-200 8 Minerva Avalos [address] , [address], [place], [facility], [place]. tel:[phone] Office/outpat ient Visit, [facility], [address] [place] [address] [address], [place], [place], [address], [place] tel:[phone] [facility] No Information Apr-1 7-200 8 Minerva Avalos [address] , [address], [place], [facility], [place]. tel:[phone] [facility], [address] [place] [address] [address], [place], [place], [address], [place] tel:[phone] [facility] No Information Oct-2 9-200 7 Minerva Avalos [address] , [address], [place], [facility], [place]. tel:[phone] Referring Provider: Sylvia Martinez, [address], [place], [address]. tel:[phone] [facility], [address], [place], [place], [address], [place] tel:[phone] [facility] [place] No Information 4200 7 Minerva Ward. [address] [facility] , [address], [place], [address], [place]. tel:[phone] Family History Family Member Type Diagnosis Age At Onset No Information Payers Payer name Insurance type Covered libertarian ID Authoriza tion(s) [employer] Md[employer] Adv CI [id number] Social History Type Description Quantity Date Captured [...]
[2025-02-28 06:42] LABS: Add Urine Microscopic? YES; Appearance Urine Clear (Clear); Bacteria Urine 1+ /hpf; Bilirubin Urine Negative (Negative); Blood Urine 2+ (Negative); Color Urine Yellow (Yellow); Glucose Urine UA Negative (Negative); Ketones Urine Negative (Negative); Leukocyte Esterase Ur 1+ LEU/UL (Negative); Need Manual Microscopic Reviewed; Nitrate Urine Negative (Negative); Non Pathogenic Casts 0-2; Protein Urine Negative (Negative); RBC Urine 0-2 /hpf (0-2); Specific Grav Ur 1.004 (1.001-1.035); Squamous Epithelial Cell Urine None Seen /hpf (Few); Urobilinogen Urine 0.2 mg/dL (<2.0); WBC Urine 0-5 /hpf (0-3)
--- NOTE | 2025-02-28 06:51 | ED.GENADULT ---
HPI - General Adult General Chief complaint: Urogenital-Male Stated complaint: urinary retention Time Seen by Provider: 02/28/25 06:06 History of Present Illness HPI narrative: Patient 84-year-old gentleman presents emergency department chief complaint of urinary retention. The patient reports that he had a catheter removed 2 days ago reports that he is scheduled for a TURP patient states that he has been unable to urinate for several hours. Related Data Home Medications ?Medication ?Instructions ?Recorded ?Confirmed ?Last Taken ?Type levofloxacin 500 mg tablet 500 mg PO DAILY 09/10/24 12/12/24 Unknown History Allergies Allergy/AdvReac Type Severity Reaction Status Date / Time No Known Allergies Allergy Verified 02/12/25 09:31 Review of Systems Review of Systems: A 10 system review of systems was completed on the patient and is negative except for what is stated in the HPI. Nursing and ancillary documentation was reviewed. [facility] Past Medical History Medical History Urinary retention Acute dermatitis Body mass index [BMI] 26.0-26.9, adult (07/22/17) Body mass index [BMI] 27.0-27.9, adult (02/01/17) Body mass index [BMI] 31.0-31.9, adult (05/18/16) Bronchitis Coughing Enlarged prostate without lower urinary tract symptoms (luts) URI, acute Wheezing Encounter for immunization Contact dermatitis HLD (hyperlipidemia) Surgical History Surgical History History of skin surgery 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 No problems noted. Sibling Acute myocardial infarction Social History Social History Smoking status: Former smoker Second hand tobacco smoke exposure: Yes Smoking end date: 10/24/77 Alcohol intake: former Alcohol use details: last alcohol use 05/2023 Substance use: never Substance use type: does not use Current Housing: Decline to Answer Concerned About Future Housing: Decline to Answer Difficulty Paying Gas/Electric Bills: Decline to Answer Difficulty Paying for Meds: Decline to Answer Currently Unemployed: Decline to Answer Education: Decline to Answer Difficulty w/ Childcare or Family Care: Decline to Answer Living arrangements: with family 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 HEAD: Normocephalic, atraumatic. EYES: PERRLA and EOMI. ENT: Nares clear, no rhinorrhea or epistaxis. Mucous membranes moist. NECK: Supple. CHEST: Clear to auscultation. No respiratory distress. HEART: Regular rate and rhythm. No murmur heard. Normal peripheral pulses. ABDOMEN: Soft, nontender, nondistended, normal active bowel sounds. EXTREMITIES: Normal range of motion. No edema. SKIN: Warm, dry, no rash. NEURO: No focal deficits. Alert and oriented x3. PSYCH: Normal mood and affect. Course Vital Signs Vital signs: Vital Signs Pulse Rate 101 H 02/28/25 06:05 Respiratory Rate 15 02/28/25 06:05 Blood Pressure 135/83 02/28/25 06:05 Pulse Oximetry 96 02/28/25 06:05 Pulse Rate 101 H 02/28/25 06:05 Respiratory Rate 15 02/28/25 06:05 Blood Pressure 135/83 02/28/25 06:05 Pulse Oximetry 96 02/28/25 06:05 Medical Decision Making [facility] Narrative Medical decision making narrative: Differential diagnosis includes UTI, BPH, urinary retention Patient had over 600 mL of urine in his bladder Motta catheter was placed by the nursing staff and patient is had good drainage. Urinalysis showed no evidence UTI Motta catheter will be left intact and the patient should follow-up with his urologist Vital Signs Vital Signs: Vital Signs Pulse Rate 101 H 02/28/25 06:05 Respiratory Rate 15 02/28/25 06:05 Blood Pressure 135/83 02/28/25 06:05 Pulse Oximetry 96 02/28/25 06:05 Pulse Rate 101 H 02/28/25 06:05 Respiratory Rate 15 02/28/25 06:05 Blood Pressure 135/83 02/28/25 06:05 Pulse Oximetry 96 02/28/25 06:05 Lab Data Labs: Lab Results 05/08/25 Range/Units 06:21 Urine Color Yellow (Yellow) Urine Appearance Clear (Clear) Urine pH 7.0 (5.0-9.0) Ur Specific [place] 1.004 (1.001-1.035) Urine Protein Negative (Negative) mg/dL Urine Glucose (UA) Negative (Negative) mg/dL Urine Ketones Negative (Negative) mg/dL Ur Blood (Man) 2+ H (Negative) Urine Nitrate Negative (Negative) Urine Bilirubin Negative (Negative) Urine Urobilinogen 0.2 (<2.0) mg/dL Add Ur Microanalysis Reviewed Leukocyte Esterase Rfl 1+ H (Negative) RITESH/UL Urine RBC 0-2 (0-2) /hpf Urine WBC 0-5 (0-3) /hpf Ur Squamous Epith Cells None seen (Few) /hpf Urine Bacteria 1+ H /hpf Urine Casts 0-2 Discharge Plan Discharge Clinical Impression: Acute urinary retention Patient Disposition: Home Condition: Stable Instructions: Antibiotic Form, Urinary Retention in Men (ED), Motta Catheter Placement and Care (ED), How to Change a Catheter Drainage Bag (DC) Patient Language: South African Prescriptions: No Action levofloxacin 500 mg tablet 500 mg PO DAILY tamsulosin [Flomax] 0.4 mg capsule 0.4 mg PO DAILY 14 Days Qty: 14 0RF furosemide [Lasix] 20 mg tablet 20 mg PO DAILY Qty: 14 0RF finasteride 5 mg tablet See Rx Instructions .ROUTE .COMPLEX Qty: 90 2RF Dose Instruction: TAKE 1 TABLET BY MOUTH EVERY DAY Rx Instructions: TAKE 1 TABLET BY MOUTH EVERY DAY zolpidem 10 mg tablet 10 mg PO QHS Qty: 90 0RF meloxicam 15 mg tablet See Rx Instructions .ROUTE .COMPLEX Qty: 90 2RF Dose Instruction: TAKE 1 TABLET BY MOUTH EVERY DAY Rx Instructions: TAKE 1 TABLET BY MOUTH EVERY DAY amlodipine 5 mg tablet See Rx Instructions .ROUTE .COMPLEX Qty: 90 2RF Dose Instruction: TAKE 1 TABLET BY MOUTH EVERY DAY Rx Instructions: TAKE 1 TABLET BY MOUTH EVERY DAY Follow-up/Referrals: Davie Lewis MD [Primary Care Provider] - Time of Disposition: 06:54
[2025-02-28 06:53] VITALS: TEMP 36.7
[2025-02-28 06:55] VITALS: BP 132/68; RESP 16; TEMP 36.7; O2SAT 98
== END 2025-02-28 07:06 | disposition home or self-care (01) ==
PROVIDERS: Emergency Provider Emergency Medicine; PCP Emergency Medicine
DX: R33.9 Retention of urine, unspecified (principal); E78.5 Hyperlipidemia, unspecified; Z87.891 Personal history of nicotine dependence
CPT/HCPCS: 51702; 81001; 87086; 87181; 99283

== ENCOUNTER 2025-03-17 05:05 | Emergency (ER) | payer OTHER, SELFPAY ==
[2025-03-17 05:06] VITALS: BP 133/62; PULSE 79; RESP 16; TEMP 36.5; O2SAT 97
--- OUTSIDE RECORDS SUMMARY | 2025-03-17 05:07 | XMS_ITS | CONTINUITY OF CARE DOCUMENT ---
Author Name mio lieberman Address Unknown Organization [facility] Office Address [address] [place] [address] Phone [phone] Care Team Providers Care Pipe Threading Machine Operator Name Role Phone Douglas Griggs MD Unavailable [phone] Douglas Griggs MD Unavailable INSURANCE PROVIDERS Payer name Policy type / Coverage type [place] red green party ID [facility] HMO Other [id number]
--- OUTSIDE RECORDS SUMMARY | 2025-03-17 05:07 | XMS_ITS | Continuity of Care Document ---
Author Organization [facility] Address [address] [place] [address] [place] [address] Phone Care Team Providers Care Cell Liner Name Role Phone Sylvia Palma Unavailable Unavailable [...] Copied on Encounter Office/outpat ient Visit, Est [facility], [address] [place] [address] [address], [place], [place], [id number], [place] tel:[phone] [facility] [place] No Information 0-201 0 Minerva Avalos [address] [facility] [place] , [address], [place], [place], [facility], [place]. tel:[phone] Office/outpat ient Visit, Est [facility], [address] [place] [address] [address], [place], [place], [address], [place] tel:[phone] [facility] [place] No Information 7-200 9 Minerva Avalos [address] [facility] , [address], [place], [address], [place]. tel:[phone] [facility], [address] [place] [address] [address], [place], [place], [address], [place] tel:[phone] [facility] No Information Oct-2 2-200 9 Minerva Avalos [address] , [address], [place], [facility], [place]. tel:[phone] [facility], [address] [place] [address] [address], [place], [place], [address], [place] tel:[phone] SEC [facility] No Information May-0 7-200 9 Minerva Avalos [address] , [address], [place], [facility], [place]. tel:[phone] Referring Provider: Sylvia Martinez, [address], [place], [facility]. tel:[phone] [facility], [address] [place] [address] [address], [place], [place], [address], [place] tel:[phone] SEC [facility] No Information Oct-1 6-200 8 Minerva Avalos [address] , [address], [place], [facility], [place]. tel:[phone] Office/outpat ient Visit, [facility], [address] [place] [address] [address], [place], [place], [address], [place] tel:[phone] [facility] No Information Apr-1 7-200 8 Minerva Avalos [address] , [address], [place], [facility], [place]. tel:[phone] [facility], [address] [place] [address] [address], [place], [place], [address], [place] tel:[phone] SEC [facility] No Information Oct-2 9-200 7 Minerva Avalos [address] , [address], [place], [facility], [place]. tel:[phone] Referring Provider: Sylvia Martinez, [address], [place], [address]. tel:[phone] [facility], [address], [place], [place], [address], [place] tel:[phone] [facility] [place] No Information [address] [facility] , [address], [place], [address], [place]. tel:[phone] Family History Family Member Type Diagnosis Age At Onset No Information Payers Payer name Insurance type Covered alliance party ID Authoriza tion(s) [employer] Md[employer] Adv CI [id number] Social History Type Description Quantity Date Captured [...]
--- OUTSIDE RECORDS SUMMARY | 2025-03-17 05:07 | XMS_ITS | Data Portability ---
Author Organization [place] [facility], Main Office Address [address] [place] [address] Care Team Providers Care Event Organizer Name Role Phone YOVANNY SALAZAR Primary Care Provider YOVANNY SALAZAR Referring Provider [phone] Assessment Encounter Date Assessment Date Assessment LastModified [...] procedure, administere d by provider 2023 024 [email or web address] In-Office Order, Internal Use Only DO Not Attach Compendium DO Not Attach Compendium, Do Not Delete/merge, [id number] 09:43:50 injection/a spiration joint/bursa (PROC) - in office procedure, administere d by provider 2022 023 [email or web address] In-Office Order, Internal Use Only DO Not Attach Compendium DO Not Attach Compendium, Do Not Delete/merge, [id number] 3 09:05:48 injection/a spiration joint/bursa (PROC) - in office procedure, administere d by provider 2022 023 [email or web address] In-Office Order, Internal Use Only DO Not Attach Compendium DO Not Attach Compendium, Do Not Delete/merge, [id number] 08:57:05 injection/a spiration joint/bursa (PROC) - in office procedure, administere d by provider 2022 023 In-Office Order, Internal Use Only DO Not Attach Compendium DO Not Attach Compendium, Do Not Delete/merge, [id number] 3 09:39:49 Surgeries None recorded. Imaging XR, knee 2022 023 [email or web address] [facility], [address], [place], [address], 3 15:22:34 Medication Orders Kenalog 10 mg/mL suspension for injection 2023 024 [email or web address] [facility]/Pharmacy #[id number], [address], [place], [address], 4 14:13:50 ropivacaine (PF) 5 mg/mL (0.5 %) injection solution 2023 024 [place] [address] [facility] #[id number], [address] [place], [address], 4 14:13:50 Kenalog 10 mg/mL suspension for injection [address]/Pharmacy #[id number], [address] [place], [address], 3 09:15:03 ropivacaine (PF) 5 mg/mL (0.5 %) injection solution 2022 023 [email or web address] Not available 3 15:30:34 Kenalog 10 mg/mL suspension for injection [address]/Pharmacy #[id number], [address] [place], [address], 3 09:04:23 ropivacaine (PF) 5 mg/mL (0.5 %) injection solution [address]/Pharmacy #[id number], [address] [place], [address], 3 09:04:27 Kenalog 10 mg/mL suspension for injection 2022 023 [place] [address] [id number], [address] [place], [address], 3 09:04:23 ropivacaine (PF) 5 mg/mL (0.5 %) injection solution [address]/Pharmacy #[id number], [address] [place], [address], 3 09:04:27 Patient TargetsNo targets recorded. Patient InstructionsNo instructions recorded. Reason for Referral None Reported. Results Created Date Observation Date Name Description Value Unit Range Abnormal Flag Note LastModifiedBy Organization Detail LastModifiedTime 02/18/20 XR, knee No observ ation record ed. [facility] [address], [place], [address], 02/17/2023 09:38:15 Result Notes None recorded. Problems Name Problem SNOMED Code Status Onset Date Resolution Date Notes Provider Name and Address Organization Details Recorded Time Current tear of medial cartilage AND/OR meniscus of knee Active Not Available [facility] 3 12:56:32 Osteoarthr itis 620277211 Active Not Available [facility] 3 12:56:32 Pain of right knee joint 6231784679462 00 Active 2021 Not Available [facility] 3 12:56:32 Osteoarthr itis of right knee joint 5756415372846 00 Active 2022 DESTINEY Juarez, [place] - [facility] 09:39:37 Problem Notes None recorded. Procedures Surgical History None recorded. Imaging Results Imaging Date Name Status LastModified by Organiz ation Details LastModified Time 02/17/2023 XR, knee completed [email or web address] [facility] [address], [place], [address], 02/17/2023 09:38:15 Procedure Notes None recorded. Medical [...] suspension for injection in office 2023 active [facility]: 0003- 0494- 20 Not Available Not Available [...] %) injection solution in office 2023 active [facility] 39747 -064- 01 Not Available Not Available Not [...] Updated DateTime 10/07/2022 165.1 cm Not Available [facility] 12:55:37 Date Recorded Body height Body mass index (BMI) Body weight Provider Name and Address Organization Details Last Updated DateTime 02/17/2023 162.56 cm 26.4 kg/m2 91076.22 g Chelsy Acosta [facility] [employer] [facility] 02/17/2023 09:41:39 Date Recorded Body height Provider Name an d Address Organization Details Last Updated DateTime 05/12/2023 162.56 cm Chelsy Acosta [facility] [employer] [facility] 05/12/2023 08:55:51 Date Recorded Body height Provider Name an d Address Organization Details Last Updated DateTime 08/11/2023 162.56 cm Serena Vital [facility] [employer] [facility] 08/11/2023 09:00:35 Date Recorded Body height Provider Name an d Address Organization Details Last Updated DateTime 12/29/2023 162.56 cm Chelsy Acosta [facility] [employer] [facility] 12/29/2023 09:41:05 Social History Question Answer Notes LastModified by Organizat ion Details LastModified Time Tobacco Smoking Status Former Smoker quit 1977 Not Available [facility] 12/22/2022 12:53:11 When Did You Quit Smoking? 17+yearssin celastcigar ette [id number] Information not available 12/22/2022 Sex: Unknown Functional Status Question Answer Note LastModified by Organizat ion Details LastModified Time What is your level of alcohol consumption? Moderate [id number] Information not available 12/22/2022 Mental Status None recorded. Family History Relationship Description Onset Age of this Age Resolved Age Notes LastModified by Organization Details LastModified Time Brother Family history of malignant neoplasm [id number] Not available 12/22/2022 12:53:22 Mother Hypertensive disorder [id number] Not available 12/22/2022 12:53:22 Medical History Condition Response BLINDNESS N KIDNEY STONES N MRSA N CARPAL TUNNEL SYNDROME N LUNG DISEASE/DISORDER N HISTORY OF DRUG ABUSE N COPD Y RADIATION / CHEMOTHERAPY N SPORTS INJURY N ANKLE PAIN N BLOOD DISEASES N SCHIZOPHRENIA N SHINGLES N SHOULDER PAIN N DEPRESSION (INCLUDING POST ) N BOWEL PROBLEMS N STROKE/TIA N KNEE PAIN N ULCERS N BENIGN PROSTATIC HYPERPLASIA N OBESITY N [...] HAVE YOU BEEN HOSPITALIZED OR SEEN IN [facility] ER IN THE PAST YEAR ? N [...] SNOMED-CT Code Diagnosis ICD10 Code Diagnosis Note [id number] Clay Mckee MD [facility]_[address] [address] 02/11/2022 00:00:00 02/11/2022 10:38:48 [id number] Clay Mckee MD [facility]_[address] [address] 05/20/2022 00:00:00 05/20/2022 09:35:20 [id number] MD LANETTE [facility] [address] [address] 10/07/2022 00:00:00 10/07/2022 09:59:21 [id number] Clay Mckee MD [facility]_[address] [address] 02/17/2023 09:21:41 02/17/2023 10:20:29 Osteoarthritis of right knee joint 0265605210 99601 M17.11 [id number] Clay Mckee MD [facility] [address] 05/12/2023 08:50:58 05/12/2023 09:30:17 Osteoarthritis of right knee joint 1640630433 58818 M17.11 [id number] Clay Mckee MD [facility]_[address] [address] 08/11/2023 08:53:52 08/11/2023 09:41:33 Osteoarthritis of right knee joint 2345624149 08105 M17.11 [id number] Clay Mckee MD [facility]_[address] [address] 12/29/2023 09:35:01 12/29/2023 10:12:36 Osteoarthritis of right knee joint 1357909671 92313 M17.11 Health Concerns Section Related Observation LastModified by Organization Detai ls LastModified Time None Recorded Concern Status LastModified by Organization Details LastModified Time None Recorded Advance Directives Directive None Recorded Payers Encounter Date Sequence Insurance Name Policy Number Policy Iniguez Covered Member ID Iniguez Member ID Guarantor Name 02/17/2023 1 [facility] (MEDICARE REPLACEMENT HMO) [id number] Aubrey Tracy [id number] Aubrey Tracy 05/12/2023 1 [facility] (MEDICARE REPLACEMENT HMO) [id number] Aubrey Tracy [id number] Aubrey Tracy 08/11/2023 1 [facility] [facility] (MEDICARE REPLACEMENT HMO) [id number] Aubrey Tracy [id number] Aubrey Tracy 12/29/2023 1 [facility] (MEDICARE REPLACEMENT HMO) [id number] Aubrey Tracy [id number] Aubrey Tracy
--- NOTE | 2025-03-17 05:22 | ED.MALEGU ---
HPI - Male Genitourinary General Chief complaint: Urogenital-Male Stated complaint: wants catheter taken out Time Seen by Provider: 03/17/25 05:21 Source: patient Limitations: no limitations History of Present Illness HPI Narrative: Patient presents with request for removal of his urinary catheter. It was placed 02/28/2025 and he states for the past 2 weeks he has noticed that urine is flowing out around at the urethral meatus. He has seen Urology here and states there has been discussion of upcoming TURP although nothing is scheduled yet. He denies any pain in his abdomen or throughout his penis. He denies any hematuria, fevers, chills, or flank pain. He is just frustrated by the urine which is requiring him to wear a brief. Related Data Home Medications ?Medication ?Instructions ?Recorded ?Confirmed ?Last Taken ?Type levofloxacin 500 mg tablet 500 mg PO DAILY 09/10/24 03/06/25 Unknown History Allergies Allergy/AdvReac Type Severity Reaction Status Date / Time No Known Allergies Allergy Verified 03/06/25 08:37 [facility] Past Medical History Medical History Urinary retention Acute dermatitis Body mass index [BMI] 26.0-26.9, adult (07/22/17) Body mass index [BMI] 27.0-27.9, adult (02/01/17) Body mass index [BMI] 31.0-31.9, adult (05/18/16) Bronchitis Coughing Enlarged prostate without lower urinary tract symptoms (luts) URI, acute Wheezing Encounter for immunization Contact dermatitis HLD (hyperlipidemia) Surgical History Surgical History History of skin surgery 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 No problems noted. Sibling Acute myocardial infarction Social History Social History Smoking status: Former smoker Second hand tobacco smoke exposure: Yes Smoking end date: 10/24/77 Alcohol intake: former Alcohol use details: last alcohol use 05/2023 Substance use: never Substance use type: does not use Current Housing: Decline to Answer Concerned About Future Housing: Decline to Answer Difficulty Paying Gas/Electric Bills: Decline to Answer Difficulty Paying for Meds: Decline to Answer Currently Unemployed: Decline to Answer Education: Decline to Answer Difficulty w/ Childcare or Family Care: Decline to Answer Living arrangements: with family 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 HEAD: Normocephalic, atraumatic. EYES: Non injected, non icteric ENT: Nares clear, no rhinorrhea or epistaxis. Gross auditory acuity intact. NECK: Supple. No meningismus. CHEST: Speaking in full sentences. No respiratory distress. HEART: Regular rate and rhythm. . ABDOMEN: Soft, nondistended. No rigidity or guarding. Not peritoneal : Motta catheter in place with 10cc balloon. No drainage around urethral meatus after manipulated by techs approximately 20minutes prior to my assessment. Yellow urine in drainage bag. EXTREMITIES: Normal range of motion. No lower extremity edema. SKIN: Warm, dry, no rash. NEURO: No focal deficits. Alert and oriented. Answering questions. Following commands. Normal speech without aphasia or dysarthria. PSYCH: Normal mood and affect. Course Vital Signs Vital signs: Vital Signs Temperature 97.7 F 03/17/25 05:06 Pulse Rate 79 03/17/25 05:06 Respiratory Rate 16 03/17/25 05:06 Blood Pressure 133/62 03/17/25 05:06 Pulse Oximetry 97 03/17/25 05:06 Oxygen Delivery Room Air 03/17/25 05:06 Temperature 97.8 F 03/17/25 08:10 Pulse Rate 78 03/17/25 08:10 Respiratory Rate 16 03/17/25 08:10 Blood Pressure 132/74 03/17/25 08:10 Pulse Oximetry 98 03/17/25 08:10 Oxygen Delivery Room Air 03/17/25 05:06 MDM - Male Genitourinary MDM Narrative Medical decision making narrative: Patient presents requesting his urinary catheter be removed. It was placed on 02/28/2025 in the emergency department for diagnosis of urinary retention and he states that for the past 2 weeks he has noticed that urine is draining around the catheter at the urethral meatus. In the emergency department they are afebrile with vital signs within normal limits. Emergency department techs to deflate the balloon and note that there were only 8 mL of fluid in the inflated balloon initially. They did reinflate the balloon using full 10 cc fluid. Patient was evaluated approximately 20 minutes after this there did not appear to be any lingering drainage. Patient remained in the emergency department for an additional 45 minutes and at that time did note that drainage had recurred. I did go to bedside and there is urine in the brief. Spoke with Dr. Recinos who confirms that patient has urodynamics study on 03/25/25. Concurs that this might have been related to underfilling of balloon but also would want to rule out improvper placement of catheter and notes that bladdder spasms are possible cause. He notes that patient has previously had all indication that he can urinate that these incidents of retention often occur when patient has been drinking alcohol. Notes we can get PVR to check. He also reviews notes that show that patient has been taught how to self-catheterize. Patient has <70cc on bladder scan. States he has not been drinking lately. I did discuss with patient and he would like the catheter removed. He confirms that he was taught how to self cath and he has had to do so once. He still has supplies. He understands that he will have a trial of void at home (or here if he is able to produce sample) and should be able to urinate. If not, he can self cath and, if necessary, return to the ED for replacemnt of catheter. He is in agreement. Urine sample was able to be obtained immediately after fully removed catheter removal. Patient is insistent that he would like to be discharged at this time before urinalysis had resulted. Discharge paperwork provided and urinalysis was followed up on. This does appear to be infected and, as promised, a prescription for antibiotic was sent. Lab Data Attestation: I reviewed the patient's lab results. Labs: Lab Results 03/17/25 Range/Units 07:53 Urine Color Yellow (Yellow) Urine Appearance Turbid H (Clear) Urine pH 6.5 (5.0-9.0) Ur Specific [place] 1.015 (1.001-1.035) Urine Protein 1+ H (Negative) mg/dL Urine Glucose (UA) Negative (Negative) mg/dL Urine Ketones Negative (Negative) mg/dL Ur Blood (Man) 3+ H (Negative) Urine Nitrate Positive H (Negative) Urine Bilirubin Negative (Negative) Urine Urobilinogen 0.2 (<2.0) mg/dL Leukocyte Esterase Rfl 3+ H (Negative) RITESH/UL Urine RBC >100 H (0-2) /hpf Urine WBC >100 H (0-3) /hpf Ur Squamous Epith Cells None seen (Few) /hpf Urine Bacteria 4+ H /hpf Urine Casts 0-2 Discharge Plan Discharge Clinical Impression: Encounter for Motta catheter removal, UTI (urinary tract infection) Patient Disposition: Home Condition: Stable Instructions: Antibiotic Form, Motta Catheter Removal (DC) Additional Instructions: Keep your upcoming Urology appointment on 03/25/2025. A prescription will be electronically sent to your pharmacy if your urine shows an infection. Return to the emergency department with any new worsening or unmanaged symptoms such as urinary retention although you can consider self-catheterization at home first as you were taught by urology. Patient Language: Kazakh Prescriptions: New cefpodoxime 200 mg tablet 200 mg PO BID 10 Days Qty: 20 0RF Rx Instructions: must administer with a meal/food No Action levofloxacin 500 mg tablet 500 mg PO DAILY trazodone 100 mg tablet 100 mg PO QHS PRN (Reason: insomnia) Qty: 30 0RF prednisone 20 mg tablet 20 mg PO DAILY Qty: 5 0RF azithromycin [Zithromax Z-Garcia] 250 mg tablet See Rx Instructions PO .COMPLEX Qty: 6 0RF Rx Instructions: For 250 mg dose pack: take 500 mg today (day 1), then 250 mg for 4 days (days 2-5) PO tamsulosin [Flomax] 0.4 mg capsule 0.4 mg PO DAILY 14 Days Qty: 14 0RF furosemide [Lasix] 20 mg tablet 20 mg PO DAILY Qty: 14 0RF finasteride 5 mg tablet See Rx Instructions .ROUTE .COMPLEX Qty: 90 2RF Dose Instruction: TAKE 1 TABLET BY MOUTH EVERY DAY Rx Instructions: TAKE 1 TABLET BY MOUTH EVERY DAY meloxicam 15 mg tablet See Rx Instructions .ROUTE .COMPLEX Qty: 90 2RF Dose Instruction: TAKE 1 TABLET BY MOUTH EVERY DAY Rx Instructions: TAKE 1 TABLET BY MOUTH EVERY DAY amlodipine 5 mg tablet See Rx Instructions .ROUTE .COMPLEX Qty: 90 2RF Dose Instruction: TAKE 1 TABLET BY MOUTH EVERY DAY Rx Instructions: TAKE 1 TABLET BY MOUTH EVERY DAY Follow-up/Referrals: Davie Lewis MD [Primary Care Provider] - Time of Disposition: 08:08
--- OUTSIDE RECORDS SUMMARY | 2025-03-17 05:30 | XMS_ITS | CONTINUITY OF CARE DOCUMENT ---
Author Name mio lieberman Address Unknown Organization [facility] Office Address [address] [facility] [address] [place] [address] Phone [phone] Care Team Providers Care Cheese Weigher Name Role Phone Douglas Griggs MD Unavailable [phone] Douglas Griggs MD Unavailable INSURANCE PROVIDERS Payer name Policy type / Coverage type [place] red green party ID [facility] HMO Other .[id number]
--- OUTSIDE RECORDS SUMMARY | 2025-03-17 05:30 | XMS_ITS | Continuity of Care Document ---
Author Organization [facility] Address [id number] [place] [address] [place] [address] Phone Care Team Providers Care Side Guider Name Role Phone Sylvia Palma Unavailable Unavailable [...] Copied on Encounter Office/outpat ient Visit, [facility], [address] [place] [address] [address], [place], [place], [id number], [place] tel:[phone] [facility] [place] No Information 0-201 0 Minerva Avalos [address] [facility] [place] , [address], [place], [place], [facility], [place]. tel:[phone] Office/outpat ient Visit, [facility], [address] [place] [address] [address], [place], [place], [id number], [place] tel:[phone] [facility] [place] No Information 7-200 9 Minerva Avalos [address] [facility] , [address], [place], [address], [place]. tel:[phone] [facility], [address] [place] [address] [address], [place], [place], [id number], [place] tel:[phone] [facility] No Information Oct-2 2-200 9 Minerva Avalos [address] , [address], [place], [place], [facility], [place]. tel:[phone] [facility], [address] [place] [address] [address], [place], [place], [id number], [place] tel:[phone] SEC [facility] No Information May-0 7-200 9 Minerva Avalos [address] , [address], [place], [place], [facility], [place]. tel:[phone] Referring Provider: Sylvia Martinez, [address], [place], [place], [facility]. tel:[phone] [facility], [address] [place] [address] [address], [place], [place], [id number], [place] tel:[phone] [facility] No Information Oct-1 6-200 8 Minerva Avalos [address] , [address], [place], [place], [facility], [place]. tel:[phone] Office/outpat ient Visit, [facility], [address] [place] [address] [address], [place], [place], [address], [place] tel:[phone] [facility] No Information Apr-1 7-200 8 Minerva Avalos [address] , [address], [place], [place], [facility], [place]. tel:[phone] [facility], [address] [place] [address] [address], [place], [place], [id number], [place] tel:[phone] [facility] No Information Oct-2 9-200 7 Minerva Avalos [address] , [address], [place], [place], [facility], [place]. tel:[phone] Referring Provider: Sylvia Martinez, [address], [place], [address]. tel:[phone] [facility], [address], [place], [place], [id number], [place] tel:[phone] [facility] [place] No Information 4200 7 Minerva Ward. [address] [facility] , [address], [place], [address], [place]. tel:[phone] Family History Family Member Type Diagnosis Age At Onset No Information Payers Payer name Insurance type Covered libertarian ID Authoriza tion(s) [employer] Md[employer] Adv CI [id number] Social History Type Description Quantity Date Captured [...]
--- NOTE | 2025-03-17 07:48 | PC.NURSE ---
sr cath removed without difficulty, pt tolerated procedure well
[2025-03-17 08:10] VITALS: BP 132/74; PULSE 78; RESP 16; TEMP 36.6; O2SAT 98
[2025-03-17 08:10] LABS: Add Urine Microscopic? YES; Appearance Urine Turbid (Clear); Bacteria Urine 4+ /hpf; Bilirubin Urine Negative (Negative); Blood Urine 3+ (Negative); Color Urine Yellow (Yellow); Glucose Urine UA Negative (Negative); Ketones Urine Negative (Negative); Leukocyte Esterase Ur 3+ LEU/UL (Negative); Nitrate Urine Positive (Negative); Non Pathogenic Casts 0-2; Protein Urine 1+ mg/dL (Negative); RBC Urine >100 /hpf (0-2); Specific Grav Ur 1.015 (1.001-1.035); Squamous Epithelial Cell Urine None Seen /hpf (Few); Urobilinogen Urine 0.2 mg/dL (<2.0); WBC Urine >100 /hpf (0-3); pH Urine 6.5 (5.0-9.0)
== END 2025-03-17 08:10 | disposition home or self-care (01) ==
PROVIDERS: Emergency Provider Student in an Organized Health Care Education/Training Program; PCP Emergency Medicine
DX: Z43.6 Encounter for attention to other artificial openings of urinary tract (principal); N39.0 Urinary tract infection, site not specified; E78.5 Hyperlipidemia, unspecified; N40.0 Benign prostatic hyperplasia without lower urinary tract symptoms; Z87.891 Personal history of nicotine dependence; Z79.899 Other long term (current) drug therapy
CPT/HCPCS: 81001; 87086; 87181; 99283

== ENCOUNTER 2025-03-19 03:38 | Emergency (ER) | payer OTHER, SELFPAY ==
[2025-03-19] VITALS (14 sets, daily range): BP systolic 126–170; BP diastolic 68–94; PULSE 59–82; RESP 18–21; TEMP 36.4–36.6; O2SAT 94–97
--- OUTSIDE RECORDS SUMMARY | 2025-03-19 03:40 | XMS_ITS | Continuity of Care Document ---
Author Organization [facility] Address [id number] [place] [address] [place] [address] Phone Care Team Providers Care Wheel Roller Name Role Phone Sylvia Palma Unavailable Unavailable [...] Copied on Encounter Office/outpat ient Visit, [facility], [address] [place] [address] [address], [place], [place], [id number], [place] tel:[phone] [facility] [place] No Information 0-201 0 Minerva Avalos [address] [facility] [place] , [address], [place], [place], [facility], [place]. tel:[phone] Office/outpat ient Visit, [facility], [address] [place] [address] [address], [place], [place], [address], [place] tel:[phone] [facility] [place] No Information 7-200 9 Minerva Avalos [address] [facility] , [address], [place], [address], [place]. tel:[phone] [facility], [address] [place] [address] [address], [place], [place], [id number], [place] tel:[phone] [facility] No Information Oct-2 2-200 9 Minerva Avalos [address] , [address], [place], [facility] [place], [place]. tel:[phone] [facility], [address] [place] [address] [address], [place], [place], [address], [place] tel:[phone] [facility] No Information May-0 7-200 9 Minerva Avalos [address] , [address], [place], [facility] [place], [place]. tel:[phone] Referring Provider: Sylvia Martinez, [address], [place], [facility] [place]. tel:[phone] [facility], [address] [place] [address] [address], [place], [place], [id number], [place] tel:[phone] [facility] No Information Oct-1 6-200 8 Minerva Avalos [address] , [address], [place], [facility] [place], [place]. tel:[phone] Office/outpat ient Visit, [facility], [address] [place] [address] [address], [place], [place], [id number], [place] tel:[phone] [facility] No Information Apr-1 7-200 8 Minerva Avalos [address] , [address], [place], [facility] [place], [place]. tel:[phone] [facility], [address] [place] [address] [address], [place], [place], [address], [place] tel:[phone] [facility] No Information Oct-2 9-200 7 Minerva Avalos [address] , [address], [place], [facility] [place], [place]. tel:[phone] Referring Provider: Sylvia Martinez, [address], [place], [address]. tel:[phone] [facility], [address], [place], [place], [id number], [place] tel:[phone] [facility] [place] No Information 4200 7 Minerva Ward. [address] [facility] , [address], [place], [address], [place]. tel:[phone] Family History Family Member Type Diagnosis Age At Onset No Information Payers Payer name Insurance type Covered libertarian ID Authoriza tion(s) [employer] Mdcr Adv CI [id number] Social History Type Description Quantity Date Captured [...]
--- OUTSIDE RECORDS SUMMARY | 2025-03-19 03:40 | XMS_ITS | Data Portability ---
Author Organization [place] [employer], Main Office Address [address] [place] [address] Care Team Providers Care Manager Flight Name Role Phone YOVANNY SALAZAR Primary Care Provider [phone] YOVANNY SALAZAR Referring Provider [phone] Assessment Encounter Date Assessment Date Assessment LastModified [...] procedure, administere d by provider 2023 024 [email or web address] In-Office Order, Internal Use Only DO Not Attach Compendium DO Not Attach Compendium, Do Not Delete/merge, [id number] 09:43:50 injection/a spiration joint/bursa (PROC) - in office procedure, administere d by provider 2022 023 [email or web address] In-Office Order, Internal Use Only DO Not Attach Compendium DO Not Attach Compendium, Do Not Delete/merge, [id number] 3 09:05:48 injection/a spiration joint/bursa (PROC) - in office procedure, administere d by provider 2022 023 In-Office Order, Internal Use Only DO Not Attach Compendium DO Not Attach Compendium, Do Not Delete/merge, [id number] 3 08:57:05 injection/a spiration joint/bursa (PROC) - in office procedure, administere d by provider 2022 023 [email or web address] In-Office Order, Internal Use Only DO Not Attach Compendium DO Not Attach Compendium, Do Not Delete/merge, [id number] 3 09:39:49 Surgeries None recorded. Imaging XR, knee 2022 023 [email or web address] [facility], [address], [place], [address], 3 15:22:34 Medication Orders Kenalog 10 mg/mL suspension for injection [email or web address] [facility]/Pharmacy #[id number], [address], [place], [address], 4 14:13:50 ropivacaine (PF) 5 mg/mL (0.5 %) injection solution 2023 024 [place] [address] [facility] #[id number], [address] [place], [address], 4 14:13:50 Kenalog 10 mg/mL suspension for injection [address]/Pharmacy #[id number], [address] [place], [address], 3 09:15:03 ropivacaine (PF) 5 mg/mL (0.5 %) injection solution 2022 023 [email or web address] Not available 3 15:30:34 Kenalog 10 mg/mL suspension for injection [address]/Pharmacy #[id number], [address] [place], [address], 3 09:04:23 ropivacaine (PF) 5 mg/mL (0.5 %) injection solution [address]/Pharmacy #[id number], [address] [place], [address], 3 09:04:27 Kenalog 10 mg/mL suspension for injection 2022 023 [place] [address] [id number], [address] [place], [address], 3 09:04:23 ropivacaine (PF) 5 mg/mL (0.5 %) injection solution [address]/Pharmacy #[id number], [address] [place], [address], 3 09:04:27 Patient TargetsNo targets recorded. Patient InstructionsNo instructions recorded. Reason for Referral None Reported. Results Created Date Observation Date Name Description Value Unit Range Abnormal Flag Note LastModifiedBy Organization Detail LastModifiedTime 02/18/20 23 XR, knee No observ ation record ed. [facility] [address], [place], [address], 02/17/2023 09:38:15 Result Notes None recorded. Problems Name Problem SNOMED Code Status Onset Date Resolution Date Notes Provider Name and Address Organization Details Recorded Time Current tear of medial cartilage AND/OR meniscus of knee Active Not Available [facility] 3 12:56:32 Osteoarthr itis 392081494 Active Not Available [facility] 3 12:56:32 Pain of right knee joint 1276879031603 00 Active 2021 Not Available [facility] 3 12:56:32 Osteoarthr itis of right knee joint 8172561398731 00 Active 2022 DESTINEY Juarez[place] - [facility] 3 09:39:37 Problem Notes None recorded. Medical Equipment None Reported. [...] suspension for injection in office [address] [facility]: 0003- 0494- 20 Not Available Not Available [...] %) injection solution in office [address] [facility] [phone] -[phone] Not Available Not Available Not [...] Updated DateTime 12/29/2023 162.56 cm Chelsy Acosta [facility] [employer] [facility] 12/29/2023 09:41:05 Date Recorded Body height Body mass index (BMI) Body weight Provider Name and Address Organization Details Last Updated DateTime 02/17/2023 162.56 cm 26.4 kg/m2 19988.22 g Chelsy Acosta [facility] [employer] [facility] 02/17/2023 09:41:39 Date Recorded Body height Provider Name an d Address Organization Details Last Updated DateTime 05/12/2023 162.56 cm Chelsy Acosta [facility] [address] [facility] 05/12/2023 08:55:51 Date Recorded Body height Provider Name an d Address Organization Details Last Updated DateTime 08/11/2023 162.56 cm Serena Vital [facility] [address] [facility] 08/11/2023 09:00:35 Date Recorded Body height Provider Name an d Address Organization Details Last Updated DateTime 10/07/2022 165.1 cm Not Available [facility] 12:55:37 Social History Question Answer Notes LastModified by [employer] Details LastModified Time Tobacco Smoking Status Former Smoker quit 1977 Not Available [facility] 12/22/2022 12:53:11 When Did You Quit Smoking? 17[facility] [id number] Information not available 12/22/2022 Sex: Unknown Functional Status Question Answer Note LastModified by [employer] Details LastModified Time What is your level of alcohol consumption? Moderate [id number] Information not available 12/22/2022 Mental Status None recorded. Family History Relationship Description Onset Age of this Age Resolved Age Notes LastModified by Organization Details LastModified Time Brother Family history of malignant neoplasm [id number] Not available 12/22/2022 12:53:22 Mother Hypertensive disorder [id number] Not available 12/22/2022 12:53:22 Medical History Condition [...] HAVE YOU BEEN HOSPITALIZED OR SEEN IN [facility] IN THE PAST YEAR ? N BURSITIS [...] SNOMED-CT Code Diagnosis ICD10 Code Diagnosis Note [id number] MD LANETTE Zapien_[address] [address] 02/11/2022 00:00:00 02/11/2022 10:38:48 [id number] MD MICHELLE Zapien [address] [address] 05/20/2022 00:00:00 05/20/2022 09:35:20 [id number] MD AZAR ZapienRyan [address] [address] 10/07/2022 00:00:00 10/07/2022 09:59:21 [id number] Clay Mckee MD [facility] [address] [address] 02/17/2023 09:21:41 02/17/2023 10:20:29 Osteoarthritis of right knee joint 6192688955 85647 M17.11 [id number] Clay Mckee MD [facility] [address] [address] 05/12/2023 08:50:58 05/12/2023 09:30:17 Osteoarthritis of right knee joint 5583171976 01227 M17.11 [id number] Clay Mckee MD [facility] [place] [address] 9 08/11/2023 08:53:52 08/11/2023 09:41:33 Osteoarthritis of right knee joint 9500981195 13645 M17.11 [id number] Clay Mckee MD [facility] [address] 12/29/2023 09:35:01 12/29/2023 10:12:36 Osteoarthritis of right knee joint 3326164132 57217 M17.11 Health Concerns Section Related Observation LastModified by Organization Detai ls LastModified Time None Recorded Concern Status LastModified by Organization Details LastModified Time None Recorded Advance Directives Directive None Recorded Payers Encounter Date Sequence Insurance Name Policy Number Policy Iniguez Covered Member ID Iniguez Member ID Guarantor Name 02/17/2023 1 [employer] (MEDICARE REPLACEMENT HMO) [id number] Aubrey Tracy [id number] Aubrey Tracy 05/12/2023 1 [employer] (MEDICARE REPLACEMENT HMO) [id number] Aubrey Tracy [id number] Aubrey Tracy 08/11/2023 1 [employer] (MEDICARE REPLACEMENT HMO) [id number] Aubrey Tracy [id number] Aubrey Tracy 12/29/2023 1 [employer] (MEDICARE REPLACEMENT HMO) [id number] Aubrey Tracy [id number] Aubrey Tracy
--- OUTSIDE RECORDS SUMMARY | 2025-03-19 03:40 | XMS_ITS | CONTINUITY OF CARE DOCUMENT ---
Author Name mio lieberman Address Unknown Organization [facility] Office Address [address] [place] [address] Phone [phone] Care Team Providers Care Tube Buffer Name Role Phone Douglas Griggs MD Unavailable [phone] Douglas Griggs MD Unavailable INSURANCE PROVIDERS Payer name Policy type / Coverage type [place] red green party ID [facility] HMO Other [id number]
[2025-03-19 04:08] LABS: Add Urine Microscopic? YES; Appearance Urine Clear (Clear); Bilirubin Urine Negative (Negative); Blood Urine 3+ (Negative); Color Urine Yellow (Yellow); Glucose Urine UA Negative (Negative); Ketones Urine Negative (Negative); Leukocyte Esterase Ur 3+ LEU/UL (Negative); Nitrate Urine Negative (Negative); Non Pathogenic Casts 0-2; Protein Urine Negative (Negative); RBC Urine 0-2 /hpf (0-2); Specific Grav Ur 1.007 (1.001-1.035); Squamous Epithelial Cell Urine None Seen /hpf (Few); Urobilinogen Urine 0.2 mg/dL (<2.0); WBC Urine 51-100 /hpf (0-3); pH Urine 6.5 (5.0-9.0)
[2025-03-19 04:11] LABS: Bacteria Urine 1+ /hpf
--- NOTE | 2025-03-19 04:42 | ED_ITS ---
HPI - Male Genitourinary General Chief complaint: Urogenital-Male Stated complaint: I need a cath Time Seen by Provider: 03/19/25 04:25 Source: patient Mode of arrival: ambulatory Limitations: no limitations History of Present Illness HPI Narrative: Patient presents requesting urinary catheter be placed. Has not voided since Tuesday when it was removed in ED at patient's request. History of the same retention. States he initially had urinary dribbling after removal but then none since. No abdominal pain. Has been taking anitiobics he was prescribed for UTI. No fevers/chills/flank pain but having abdominal pain and distention. Denies drinking alcohol. He states tried to self cath but only blood came back. Related Data Home Medications ?Medication ?Instructions ?Recorded ?Confirmed ?Last Taken ?Type levofloxacin 500 mg tablet 500 mg PO DAILY 09/10/24 03/06/25 Unknown History Allergies Allergy/AdvReac Type Severity Reaction Status Date / Time No Known Allergies Allergy Verified 03/06/25 08:37 [facility] Past Medical History Medical History Urinary retention Acute dermatitis Body mass index [BMI] 26.0-26.9, adult (07/22/17) Body mass index [BMI] 27.0-27.9, adult (02/01/17) Body mass index [BMI] 31.0-31.9, adult (05/18/16) Bronchitis Coughing Enlarged prostate without lower urinary tract symptoms (luts) URI, acute Wheezing Encounter for immunization Contact dermatitis HLD (hyperlipidemia) Surgical History Surgical History History of skin surgery 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 No problems noted. Sibling Acute myocardial infarction Social History Social History Smoking status: Former smoker Second hand tobacco smoke exposure: Yes Smoking end date: 10/24/77 Alcohol intake: former Alcohol use details: last alcohol use 05/2023 Substance use: never Substance use type: does not use Current Housing: Decline to Answer Concerned About Future Housing: Decline to Answer Difficulty Paying Gas/Electric Bills: Decline to Answer Difficulty Paying for Meds: Decline to Answer Currently Unemployed: Decline to Answer Education: Decline to Answer Difficulty w/ Childcare or Family Care: Decline to Answer Living arrangements: with family 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 HEAD: Normocephalic, atraumatic. EYES: Non injected, non icteric ENT: Nares clear, no rhinorrhea or epistaxis. Gross auditory acuity intact. NECK: Supple. No meningismus. CHEST: Speaking in full sentences. No respiratory distress. HEART: Regular rate and rhythm. . ABDOMEN: Soft, nondistended. No rigidity or guarding. Not peritoneal : Hernandez catheter in place, no drainage around urethral meatus. Appropraitely colored yellow urine in bag, approximately 850 cc out. EXTREMITIES: Normal range of motion. No lower extremity edema. SKIN: Warm, dry, no rash. NEURO: No focal deficits. Alert and oriented. Answering questions. Following commands. Normal speech without aphasia or dysarthria. PSYCH: Normal mood and affect. Course Vital Signs Vital signs: Vital Signs Temperature 97.5 F L 03/19/25 03:42 Pulse Rate 82 03/19/25 03:42 Respiratory Rate 20 03/19/25 03:42 Blood Pressure 170/94 H 03/19/25 03:42 Pulse Oximetry 97 03/19/25 03:42 Oxygen Delivery Room Air 03/19/25 03:42 Temperature 97.8 F 03/19/25 06:08 Pulse Rate 67 03/19/25 06:08 Respiratory Rate 20 03/19/25 06:08 Blood Pressure 133/68 03/19/25 06:08 Pulse Oximetry 96 03/19/25 06:08 Oxygen Delivery Room Air 03/19/25 03:42 MDM - Male Genitourinary MDM Narrative Medical decision making narrative: Patient presents with inability to urinate, requesting cathter be replaced/inserted. He had requested it be removed when here recently. This provider had seen patient, discussed patient with urology, and patient was granted removal with return instructions/precautions but also reminded of self catheterization as a ppossibility. States he trialed this but unsuccessful. In the emergency department he is afebrile vital signs notable for hypertension. Bladder scan showed more than 700 cc. Hernandez catheter placed by nursing as a result prior to my exam. Urinalysis as below. It reflexes to culture. Patient's urine culture from sample obtained 03/17/2025 has resulted and grew Enteroccocus species (coag negative staphylococcus, not S saprophyticus), may represent colonizers from external and internal genitalia .No further testing/susceptibility performed. Abnormal result. Patient will continue to take antibiotics for now and urology can follow up on culture when he goes for his urodynamics study soon. Patient has not had any labs in several years. They were not obtained when he was here recently. Will obtain to have a baseline creatinine. Mild leukocytosis and normocytic anemia. Patient may benefit from re-education on self catheterization as he states he tried but he was unable to get urine out, only blood. Normal renal function. Alcohol level negative. Differential Diagnosis Differential diagnosis: Likely urinary tract infection, acute retention of urine and other (BPH) Lab Data Attestation: I reviewed the patient's lab results. 03/19/25 05:04 03/19/25 05:04 Labs: Lab Results 03/19/25 03/19/25 Range/Units 03:57 05:04 WBC 10.5 H (4.5-10.0) K/mm3 RBC 4.34 L (4.6-6.20) M/mm3 Hgb 13.1 L (14.0-18.0) g/dL Hct 41.1 L (42.0-52.0) % MCV 94.7 (80-100) fl MCH 30.2 (26-34) pg MCHC 31.9 L (32-36) g/dl RDW 12.9 (11.5-14.5) % Plt Count 218 (150-375) k/mm3 MPV 8.9 (7.4-10.4) fl Immature Gran % (Auto) 0.8 H (0-0.5) % Neut % (Auto) 67.7 (45.5-73.1) % Lymph % (Auto) 13.2 L (18.3-44.2) % Platte % (Auto) 7.1 (2.6-8.5) % Eos % (Auto) 10.2 H (0-4.4) % Baso % (Auto) 1.0 (0.2-1.2) % Lymph # (Auto) 1.38 (0.9-3.2) K/mm3 Platte # (Auto) 0.7 H (0.1-0.6) K/mm3 Eos # (Auto) 1.1 H (0-0.3) K/mm3 Baso # (Auto) 0.1 (0.0-0.1) K/mm3 Abs Immat Gran (auto) 0.08 H (0.00-0.031) K/mm3 Absolute Neuts (auto) 7.1 H (1.3-6.7) K/mm3 Absolute Nucleated RBC 0.000 (0.0-0.012) K/mm3 Nucleated RBC % 0.0 (0.0-0.2) % Sodium 139 (137-145) mmol/L Potassium 4.0 (3.4-5.0) mmol/L Chloride 107 (98-107) mmol/L Carbon Dioxide 28 (22-30) mmol/L Anion Gap 4 (4-12) mmol/L BUN 20 (9-20) mg/dL Creatinine 0.75 (0.7-1.3) mg/dL Estim Creat Clear Calc 59 ml/min Estimated GFR > 60 (59 - ) Glucose 84 (65-110) mg/dL Calcium 8.7 (8.4-10.2) mg/dL Urine Color Yellow (Yellow) Urine Appearance Clear (Clear) Urine pH 6.5 (5.0-9.0) Ur Specific [employer] 1.007 (1.001-1.035) Urine Protein Negative (Negative) mg/dL Urine Glucose (UA) Negative (Negative) mg/dL Urine Ketones Negative (Negative) mg/dL Ur Blood (Man) 3+ H (Negative) Urine Nitrate Negative (Negative) Urine Bilirubin Negative (Negative) Urine Urobilinogen 0.2 (<2.0) mg/dL Leukocyte Esterase Rfl 3+ H (Negative) RITESH/UL Urine RBC 0-2 (0-2) /hpf Urine WBC 51-100 H (0-3) /hpf Ur Squamous Epith Cells None seen (Few) /hpf Urine Bacteria 1+ /hpf Urine Casts 0-2 Ethyl Alcohol < 10 (<10) mg/dL Discharge Plan Discharge Clinical Impression: Acute urinary retention, Encounter for Hernandez catheter fitting and adjustment, Deficient knowledge of self-catheterization, Normocytic anemia Patient Disposition: Home Condition: Stable Instructions: Antibiotic Form, Urinary Retention in Men (ED), Hernandez Catheter Placement and Care (ED), Anemia (ED) Additional Instructions: You can continue taking your antibiotics. Keep your upcoming appointment with Urology for the urodynamic study. The name of a urologist is listed below but you can alternatively follow up with whomever you have established with. The Hernandez catheter will remain in place until then. Recommend you request re- education on self-catheterization if it is removed at that appointment. Return to the emergency department with any new or worsening symptoms. Patient Language: Swedish Prescriptions: No Action levofloxacin 500 mg tablet 500 mg PO DAILY trazodone 100 mg tablet 100 mg PO QHS PRN (Reason: insomnia) Qty: 30 0RF prednisone 20 mg tablet 20 mg PO DAILY Qty: 5 0RF azithromycin [Zithromax Z-Garcia] 250 mg tablet See Rx Instructions PO .COMPLEX Qty: 6 0RF Rx Instructions: For 250 mg dose pack: take 500 mg today (day 1), then 250 mg for 4 days (days 2-5) PO tamsulosin [Flomax] 0.4 mg capsule 0.4 mg PO DAILY 14 Days Qty: 14 0RF cefpodoxime 200 mg tablet 200 mg PO BID 10 Days Qty: 20 0RF Rx Instructions: must administer with a meal/food furosemide [Lasix] 20 mg tablet 20 mg PO DAILY Qty: 14 0RF finasteride 5 mg tablet See Rx Instructions .ROUTE .COMPLEX Qty: 90 2RF Dose Instruction: TAKE 1 TABLET BY MOUTH EVERY DAY Rx Instructions: TAKE 1 TABLET BY MOUTH EVERY DAY meloxicam 15 mg tablet See Rx Instructions .ROUTE .COMPLEX Qty: 90 2RF Dose Instruction: TAKE 1 TABLET BY MOUTH EVERY DAY Rx Instructions: TAKE 1 TABLET BY MOUTH EVERY DAY amlodipine 5 mg tablet See Rx Instructions .ROUTE .COMPLEX Qty: 90 2RF Dose Instruction: TAKE 1 TABLET BY MOUTH EVERY DAY Rx Instructions: TAKE 1 TABLET BY MOUTH EVERY DAY Follow-up/Referrals: Theo Valencia MD [Physician] - Davie Lewis MD [Primary Care Provider] - Time of Disposition: 05:32
[2025-03-19 05:13] LABS: Basophils Absolute Auto 0.1 K/mm3 (0.0-0.1); Eosinophils Absolute Auto 1.1 K/mm3 (0-0.3); Eosinophils Percent Auto 10.2 % (0-4.4); Hematocrit 41.1 % (42.0-52.0); Hemoglobin 13.1 g/dL (14.0-18.0); Immature Granulocyte Absolute 0.08 K/mm3 (0.00-0.031); Immature Granulocyte Percent A 0.8 % (0-0.5); Lymphocytes Absolute Auto 1.38 K/mm3 (0.9-3.2); Lymphocytes Percent Auto 13.2 % (18.3-44.2); Mean Corpuscular HGB Conc 31.9 g/dl (32-36); Mean Corpuscular Hemoglobin 30.2 pg (26-34); Mean Corpuscular Volume 94.7 fl (80-100); Mean Platelet Volume 8.9 fl (7.4-10.4); Monocytes Absolute Auto 0.7 K/mm3 (0.1-0.6); Monocytes Percent Auto 7.1 % (2.6-8.5); Neutrophils Absolute Auto 7.1 K/mm3 (1.3-6.7); Neutrophils Percent Auto 67.7 % (45.5-73.1); Platelet Count Result 218 k/mm3 (150-375); Red Blood Count 4.34 M/mm3 (4.6-6.20); Red Cell Distribution Width 12.9 % (11.5-14.5); White Blood Count 10.5 K/mm3 (4.5-10.0)
[2025-03-19 05:21] LABS: Anion Gap 4 mmol/L (4-12); Blood Urea Nitrogen 20 mg/dL (9-20); Calcium 8.7 mg/dL (8.4-10.2); Carbon Dioxide 28 mmol/L (22-30); Chloride 107 mmol/L (98-107); Estimated CRCL calculation 59 ml/min; Estimated Glomerular Filt Rate > 60; Glucose 84 mg/dL (65-110); Sodium 139 mmol/L (137-145)
--- NOTE | 2025-03-19 05:31 | PC.NURSE ---
lab contacted to add on ethanol
--- OUTSIDE RECORDS SUMMARY | 2025-03-19 05:37 | XMS_ITS | Continuity of Care Document ---
Author Organization [facility] Address [address] [place] [address] [place] [address] Phone Care Team Providers Care Food Product Inspector Name Role Phone Sylvia Palma Unavailable Unavailable [...] Copied on Encounter Office/outpat ient Visit, Est Merged with [facility], [address] [place] [address] [address], [place], [place], [id number], [place] tel:[phone] [facility] [place] No Information 0-201 0 Minerva Avalos [address] [place] , [address], [place], [place], [facility], [place]. tel:[phone] Office/outpat ient Visit, Est Merged with [facility], [address] [place] [address] [address], [place], [place], [id number], [place] tel:[phone] [facility] [place] No Information 7-200 9 Minerva Avalos [address] , [address], [place], [address], [place]. tel:[phone] Merged with [facility], [address] [place] [address] [address], [place], [place], [id number], [place] tel:[phone] [facility] No Information Oct-2 2-200 9 Minerva Avalos [address] , [address], [place], [place], [facility], [place]. tel:[phone] [facility], [address] [place] [address] [address], [place], [place], [id number], [place] tel:[phone] [facility] No Information May-0 7-200 9 Minerva Avalos [address] , [address], [place], [place], [facility], [place]. tel:[phone] Referring Provider: Sylvia Martinez, [address], [place], [place], [facility]. tel:[phone] Merged with [facility], [address] [place] [address] [address], [place], [place], [id number], [place] tel:[phone] [facility] No Information Oct-1 6-200 8 Minerva Avalos [address] , [address], [place], [place], [facility], [place]. tel:[phone] Office/outpat ient Visit, [facility], [address] [place] [address] [address], [place], [place], [id number], [place] tel:[phone] [facility] No Information Apr-1 7-200 8 Minerva Avalos [address] , [address], [place], [place], [facility], [place]. tel:[phone] [facility], [address] [place] [address] [address], [place], [place], [id number], [place] tel:[phone] [facility] No Information Oct-2 9-200 7 Minerva Avalos [address] , [address], [place], [place], [facility], [place]. tel:[phone] Referring Provider: Sylvia Martinez, [address], [place], [address]. tel:[phone] Merged with [facility], [address], [place], [place], [id number], [place] tel:[phone] [facility] [place] No Information 4[address]a [address]. [address] [facility] , [address], [place], [address], [place]. tel:[phone] Family History Family Member Type Diagnosis Age At Onset No Information Payers Payer name Insurance type Covered libertarian ID Authoriza tion(s) [employer] Adv CI [id number] Social History Type Description Quantity Date Captured [...]
--- OUTSIDE RECORDS SUMMARY | 2025-03-19 05:37 | XMS_ITS | CONTINUITY OF CARE DOCUMENT ---
Author Name mio lieberman Address Unknown Organization [facility] Office Address [address] [place] [address] Phone [phone] Care Team Providers Care Program Schedule Clerk Name Role Phone Douglas Griggs MD Unavailable [phone] Douglas Griggs MD Unavailable [phone] INSURANCE PROVIDERS Payer name Policy type / Coverage type [employer] red [employer] party ID HMO Other [id number]
[2025-03-19 05:42] LABS: Ethanol < 10 mg/dL (<10)
== END 2025-03-19 06:13 | disposition home or self-care (01) ==
LOC: ANHED 05:35
PROVIDERS: Emergency Provider Student in an Organized Health Care Education/Training Program; PCP Emergency Medicine
DX: N40.1 Benign prostatic hyperplasia with lower urinary tract symptoms (principal); R33.8 Other retention of urine; D64.9 Anemia, unspecified; E78.5 Hyperlipidemia, unspecified; Z87.891 Personal history of nicotine dependence
CPT/HCPCS: 36415; 51702; 80048; 81001; 82077; 85025; 87086; 99283

== ENCOUNTER 2025-04-05 12:01 | Outpatient (CLI) | payer OTHER, SELFPAY ==
--- OUTSIDE RECORDS SUMMARY | 2025-04-05 12:05 | XMS_ITS | Continuity of Care Document ---
Author Organization [facility] Address [address] [place] [address] [place] [address] Phone Care Team Providers Care Registration Scheduling Specialist Name Role Phone Sylvia Palma Unavailable Unavailable [...] Copied on Encounter Office/outpat ient Visit, Est [facility], [address] [place] [address] [address], [place], [place], [address], [place] tel:[phone] [facility] [place] No Information 0-201 0 Minerva Avalos [address] [facility] [place] , [address], [place], [place], [facility], [place]. tel:[phone] Office/outpat ient Visit, Est [facility], [address] [place] [address] [address], [place], [place], [address], [place] tel:[phone] [facility] [place] No Information 7-200 9 Minerva Avalos [address] [facility] , [address], [place], [address], [place]. tel:[phone] [facility], [address] [place] [address] [address], [place], [place], [address], [place] tel:[phone] [facility] No Information Oct-2 2-200 9 Minerva Avalos [address] , [address], [place], [place], [facility], [place]. tel:[phone] [facility], [address] [place] [address] [address], [place], [place], [address], [place] tel:[phone] SEC [facility] No Information May-0 7-200 9 Minerva Avalos [address] , [address], [place], [place], [facility], [place]. tel:[phone] Referring Provider: Sylvia Martinez, [address] [facility] [address], [place], [place], [facility]. tel:[phone] [facility], [address] [place] [address] [address], [place], [place], [address], [place] tel:[phone] SEC [facility] No Information Oct-1 6-200 8 Minerva Avalos [address] , [address], [place], [facility], [place]. tel:[phone] Office/outpat ient Visit, [facility], [address] [place] [address] [address], [place], [place], [address], [place] tel:[phone] [facility] No Information Apr-1 7-200 8 Minerva Avalos [address] , [address], [place], [facility], [place]. tel:[phone] [facility], [address] [place] [address] [address], [place], [place], [address], [place] tel:[phone] SEC [facility] No Information Oct-2 9-200 7 Minerva Avalos [address] , [address], [place], [facility], [place]. tel:[phone] Referring Provider: Sylvia Martinez, [address], [place], [address]. tel:[phone] [facility], [address], [place], [place], [address], [place] tel:[phone] [facility] [place] No Information 4200 7 Minerva Ward. 2421 [facility] , [address], [place], [address], [place]. tel:[phone] Family History Family Member Type Diagnosis Age At Onset No Information Payers Payer name Insurance type Covered libertarian ID Authoriza tion(s) [employer] Mdcr Adv CI [id number] Social History Type Description Quantity Date Captured [...]
--- OUTSIDE RECORDS SUMMARY | 2025-04-05 12:05 | XMS_ITS | Data Portability ---
Author Organization [place] [facility], Main Office Address [address] [place] [address] Care Team Providers Care Medical Physiologist Name Role Phone YOVANNY SALAZAR Primary Care Provider [phone] YOVANNY SALAZAR Referring Provider [phone] Assessment Encounter Date Assessment Date Assessment LastModified [...] procedure, administere d by provider 2023 024 [email or web address] In-Office Order, Internal Use Only DO Not Attach Compendium DO Not Attach Compendium, Do Not Delete/merge, [id number] 4 09:43:50 injection/a spiration joint/bursa (PROC) - in office procedure, administere d by provider 2022 023 [email or web address] In-Office Order, Internal Use Only DO Not Attach Compendium DO Not Attach Compendium, Do Not Delete/merge, [id number] 3 09:05:48 injection/a spiration joint/bursa (PROC) - in office procedure, administere d by provider 2022 023 In-Office Order, Internal Use Only DO Not Attach Compendium DO Not Attach Compendium, Do Not Delete/merge, [id number] 3 08:57:05 injection/a spiration joint/bursa (PROC) - in office procedure, administere d by provider 2022 023 [email or web address] In-Office Order, Internal Use Only DO Not Attach Compendium DO Not Attach Compendium, Do Not Delete/merge, [id number] 3 09:39:49 Surgeries None recorded. Imaging XR, knee 2022 023 [email or web address] [facility], [address], [place], [address], 3 15:22:34 Medication Orders Kenalog 10 mg/mL suspension for injection 2023 024 [email or web address] [facility]acy #[id number], [address], [place], [address], 4 14:13:50 ropivacaine (PF) 5 mg/mL (0.5 %) injection solution 2023 024 [place] [address] [facility][id number], [address] [place], [address], 4 14:13:50 Kenalog 10 mg/mL suspension for injection [address]/Pharmacy #[id number], [address] [place], [address], 3 09:15:03 ropivacaine (PF) 5 mg/mL (0.5 %) injection solution 2022 023 [email or web address] Not available 3 15:30:34 Kenalog 10 mg/mL suspension for injection [address]/Pharmacy #[id number], [address] [place], [address], 3 09:04:23 ropivacaine (PF) 5 mg/mL (0.5 %) injection solution [address]/Pharmacy #[id number], [address] [place], [address], 3 09:04:27 Kenalog 10 mg/mL suspension for injection 2022 023 [place] [address] [facility][id number], [address] [place], [address], 3 09:04:23 ropivacaine (PF) 5 mg/mL (0.5 %) injection solution [address]/Pharmacy #[id number], [address] [place], [address], 3 09:04:27 Patient TargetsNo targets recorded. Patient InstructionsNo instructions recorded. Reason for Referral None Reported. Results Created Date Observation Date Name Description Value Unit Range Abnormal Flag Note LastModifiedBy Organization Detail LastModifiedTime 02/18/20 23 XR, knee No observ ation record ed. [email or web address] [facility] [address], [place], [address], 02/17/2023 09:38:15 Result Notes None recorded. Problems Name Problem SNOMED Code Status Onset Date Resolution Date Notes Provider Name and Address Organization Details Recorded Time Current tear of medial cartilage AND/OR meniscus of knee Active Not Available [facility] 3 12:56:32 Osteoarthr itis 835597317 Active Not Available [facility] 3 12:56:32 Pain of right knee joint 5655042414606 00 Active 2021 Not Available [facility] 3 12:56:32 Osteoarthr itis of right knee joint 8755437735473 00 Active 2022 DESTINEY Juarez, [place] - [facility] 3 09:39:37 Problem Notes None recorded. [...] suspension for injection in office 2023 active [facility]: 0003- 0494- 20 Not Available Not Available [...] %) injection solution in office 2023 active [facility] [phone] -[phone]- 01 Not Available Not Available Not [...] Updated DateTime 12/29/2023 162.56 cm Chelsy Acosta [facility] [employer] [facility] 12/29/2023 09:41:05 Date Recorded Body height Body mass index (BMI) Body weight Provider Name and Address Organization Details Last Updated DateTime 02/17/2023 162.56 cm 26.4 kg/m2 15297.22 g [address]sy Acosta [facility] [employer] [facility] 02/17/2023 09:41:39 Date Recorded Body height Provider Name an d Address Organization Details Last Updated DateTime 05/12/2023 162.56 [address]sy [address] [facility] [employer] [facility] 05/12/2023 08:55:51 Date Recorded Body height Provider Name an d Address Organization Details Last Updated DateTime 08/11/2023 162.56 cm Serena Vital [facility] [employer] [facility] 08/11/2023 09:00:35 Date Recorded Body height Provider Name an d Address Organization Details Last Updated DateTime 10/07/2022 165.1 cm Not Available [facility] 12:55:37 Social History Question Answer Notes LastModified by [employer] (Chapter 11) Details LastModified Time Tobacco Smoking Status Former Smoker quit 1977 Not Available [facility] 12/22/2022 12:53:11 When Did You Quit Smoking? 17+[facility]ss[facility] [id number] Information not available 12/22/2022 Sex: Unknown Functional Status Question Answer Note LastModified by [employer] (Chapter 11) Details LastModified Time What is your level of alcohol consumption? Moderate [id number] Information not available 12/22/2022 Mental Status None recorded. Family History Relationship Description Onset Age of this Age Resolved Age Notes LastModified by Organization Details LastModified Time Brother Family history of malignant neoplasm [id number] Not available 12/22/2022 12:53:22 Mother Hypertensive disorder [id number] Not available 12/22/2022 12:53:22 Medical History Condition Response BLINDNESS N KIDNEY STONES N MRSA N CARPAL TUNNEL SYNDROME N LUNG DISEASE/DISORDER N HISTORY OF DRUG ABUSE N RADIATION / CHEMOTHERAPY N COPD Y SPORTS INJURY N ANKLE PAIN N BLOOD DISEASES N SCHIZOPHRENIA N SHINGLES N BOWEL PROBLEMS N SHOULDER PAIN N DEPRESSION (INCLUDING POST ) N STROKE/TIA N KNEE PAIN N ULCERS [...] N NEUROPATHY N AIDS/HIV N FRACTURES N ELBOW PAIN N HYPERTENSION N TOURETTE'S N ANXIETY DISORDER N Metal allergy N BLOOD TRANSFUSION N ANEMIA/BLOOD DISORDER N BIPOLAR DISORDER N BRONCHITIS N OSTEOARTHRITIS N TUBERCULOSIS N FOOT PROBLEM N HEART VALVE DISORDERS N ALLERGIES/HAYFEVER N SOFT TISSUE INJURY N INFECTIOUS DISEASE N HEART ARRHYTHMIA N INSOMNIA N RHEUMATOID ARTHRITIS N HIGH CHOLESTEROL / HYPERLIPIDEMIA N EDEMA N CHRONIC PAIN SYNDROME N CAROTID BLOCKAGE N BACK / NECK PROBLEMS N HAVE YOU BEEN HOSPITALIZED OR SEEN IN [facility] IN THE PAST YEAR ? N BURSITIS N HERNIATED DISC N DIALYSIS N FIBROMYALGIA N OSTEOPOROSIS N ARTHRITIS Y NO SIGNIFICANT PAST MEDICAL HISTORY N PERIPHERAL NEUROPATHY N DIABETES, TYPE N HEARTBURN / REFLUX N HEPATITIS / LIVER DISEASE N GOUT N SLEEP DISORDER N ALZHEIMER'S DISEASE N HERPES N SEIZURES/EPILEPSY N HEADACHES/MIGRAINES N VASCULAR DISEASE N HIP PAIN N Blood Disorder N DIZZINESS N HEAD TRAUMA OR INJURY N HEART DISEASE/HEART PROBLEMS N MULTIPLE SCLEROSIS N CARDIAC ARRHYTHMIA N CANCER: SPECIFY N ANESTHESIA COMPLICATIONS N ATRIAL FIBRILLATION N AUTOIMMUNE DISEASE N Past Encounters Encounter ID Performer Location Encounter Start Date Encounter Closed Date Diagnosis/Indication Diagnosis SNOMED-CT Code Diagnosis ICD10 Code Diagnosis Note [id number] MD LANETTE Zapien_[address] [address] 02/11/2022 00:00:00 02/11/2022 10:38:48 [id number] MD MICHELLE Zapien [address] [address] 05/20/2022 00:00:00 05/20/2022 09:35:20 [id number] MD MICHELLE Zapien [address] [address] 10/07/2022 00:00:00 10/07/2022 09:59:21 [id number] Clay Mckee MD [facility] [address] 02/17/2023 09:21:41 02/17/2023 10:20:29 Osteoarthritis of right knee joint 5421513676 36637 M17.11 [id number] Clay Mckee MD [facility]_[address] [address] 05/12/2023 08:50:58 05/12/2023 09:30:17 Osteoarthritis of right knee joint 1802667596 73593 M17.11 [id number] Clay Mckee MD [facility] [address] 08/11/2023 08:53:52 08/11/2023 09:41:33 Osteoarthritis of right knee joint 3572860466 77184 M17.11 [id number] Clay Mckee MD [facility]_[address] [address] 12/29/2023 09:35:01 12/29/2023 10:12:36 Osteoarthritis of right knee joint 7922857987 35859 M17.11 Health Concerns Section Related Observation LastModified by Organization Detai ls LastModified Time None Recorded Concern Status LastModified by Organization Details LastModified Time None Recorded Advance Directives Directive None Recorded Payers Insurance Date Sequence Insurance Name Policy Number Policy Iniguez Covered Member ID Iniguez Member ID Guarantor Name 01/06/2024 1 [facility] (MEDICARE REPLACEMENT HMO) [id number] Aubrey Tracy [id number] Aubrey Tracy
[2025-04-05 12:41] LABS: Alanine Aminotransferase 22 U/L (6-50); Albumin Level 3.4 g/dL (3.5-5.1); Alkaline Phosphatase 28 U/L (38-126); Anion Gap 3 mmol/L (4-12); Aspartate Amino Transferase 27 U/L (17-59); Bilirubin,Total 0.8 mg/dL (0.2-1.3); Blood Urea Nitrogen 28 mg/dL (9-20); Calcium 8.5 mg/dL (8.4-10.2); Carbon Dioxide 29 mmol/L (22-30); Chloride 104 mmol/L (98-107); Cholesterol 157 mg/dL (0-200); Estimated Glomerular Filt Rate > 60; Glucose 89 mg/dL (65-110); HDL Direct 59 mg/dL; Potassium 4.1 mmol/L (3.4-5.0); Sodium 136 mmol/L (137-145); Total Protein 5.9 g/dL (6.3-8.2); Triglycerides 51 mg/dL (<150)
[2025-04-05 12:53] LABS: LDL Cholesterol Direct 75 mg/dL
[2025-04-05 13:36] LABS: Vitamin D 25 Hydroxy 25.8 ng/mL
== END 2025-04-05 12:02 | disposition home or self-care (01) ==
LOC: ANHLAB 12:02
PROVIDERS: PCP Emergency Medicine; Visit Provider Emergency Medicine
DX: E55.9 Vitamin D deficiency, unspecified (principal); E78.5 Hyperlipidemia, unspecified
CPT/HCPCS: 36415; 80053; 80061; 82306

== ENCOUNTER 2025-05-25 04:32 | Emergency (ER) | payer OTHER, SELFPAY ==
--- OUTSIDE RECORDS SUMMARY | 2025-05-25 04:34 | XMS_ITS | Continuity of Care Document ---
Author Organization [facility] Address [address] [place] [address] [place] [address] Phone Care Team Providers Care Political Science Research Assistant Name Role Phone Sylvia Palma Unavailable Unavailable [...] Copied on Encounter Office/outpat ient Visit, Est [facility], [address] [place] [address] [address], [place], [place], [address], [place] tel:[phone] [facility] [place] No Information 0-201 0 Minerva Avalos [address] [facility] [place] , [address], [place], [place], [facility], [place]. tel:[phone] Office/outpat ient Visit, Est [facility], [address] [place] [address] [address], [place], [place], [address], [place] tel:[phone] [facility] [place] No Information 7-200 9 Minerva Avalos [address] [facility] , [address], [place], [address], [place]. tel:[phone] [facility], [address] [place] [address] [address], [place], [place], [address], [place] tel:[phone] [facility] No Information Oct-2 2-200 9 Minerva Avalos [address] , [address], [place], [facility], [place]. tel:[phone] [facility], [address] [place] [address] [address], [place], [place], [address], [place] tel:[phone] SEC [facility] No Information May-0 7-200 9 Minerva Avalos [address] , [address], [place], [facility], [place]. tel:[phone] Referring Provider: Sylvia Martinez, [facility] [address], [place], [facility]. tel:[phone] [facility], [address] [place] [address] [address], [place], [place], [address], [place] tel:[phone] SEC [facility] No Information Oct-1 6-200 8 Minerva Avalos [address] , [address], [place], [facility], [place]. tel:[phone] Office/outpat ient Visit, [facility], [address] [place] [address] [address], [place], [place], [address], [place] tel:[phone] [facility] No Information Apr-1 7-200 8 Minerva Avalos [address] , [address], [place], [facility], [place]. tel:[phone] [facility], [address] [place] [address] [address], [place], [place], [address], [place] tel:[phone] [facility] No Information Oct-2 9-200 7 Minerva Avalos [address] , [address], [place], [facility], [place]. tel:[phone] Referring Provider: Sylvia Martinez, [address], [place], [address]. tel:[phone] [facility], [address], [place], [place], [address], [place] tel:[phone] [facility] [place] No Information 4200 7 Minerva Ward. 2421 [facility] , [address], [place], [address], [place]. tel:[phone] Family History Family Member Type Diagnosis Age At Onset No Information Payers Payer name Insurance type Covered constitution party ID Authoriza tion(s) [employer] Mdcr Adv CI [id number] Social History Type Description Quantity Date Captured [...]
--- OUTSIDE RECORDS SUMMARY | 2025-05-25 04:34 | XMS_ITS | Continuity of Care Document ---
Author Name [facility] Organization [facility] Care Team Providers Care Urology Surgeon Name Role Phone [facility] Unavailable Unavailable Encounters Combined list of: 1) Encounters from Department of Veterans Affairs facilities going backup to the last 18 months, not all VA inpatient encounters are included; 2) Encounters from the Department of Defense facilities going backup to 280 months. Location Location Details Encounter Type Encounter Number Reason For Visit Attending Provider ADM Date DC Date Status Disposition Source [facility] Outpatient Encounter [id number] 01/10 [facility]
[2025-05-25 04:42] VITALS: BP 174/85; PULSE 75; RESP 18; TEMP 36.8; O2SAT 96
--- OUTSIDE RECORDS SUMMARY | 2025-05-25 05:17 | XMS_ITS | Continuity of Care Document ---
Author Organization [facility] Address [address] [place] [address] [place] [address] Phone Care Team Providers Care Corn Grower Name Role Phone Sylvia Palma Unavailable Unavailable [...] Copied on Encounter Office/outpat ient Visit, Est [facility], [address] [place] [address] [address], [place], [place], [address], [place] tel:[phone] [facility] [place] No Information 0-201 0 Minerva Avalos [address] [facility] [place] , [address], [place], [place], [facility]note 2], [place]. tel:[phone] Office/outpat ient Visit, Est [facility], [address] [place] [address] [address], [place], [place], [address], [place] tel:[phone] [facility] [place] No Information 7-200 9 Minerva Avalos [address] [facility] , [address], [place], [address], [place]. tel:[phone] [facility], [address] [place] [address] [address], [place], [place], [address], [place] tel:[phone] [facility] No Information Oct-2 2-200 9 Minerva Avalos [address] , [address], [place], [facility][note 2], [place]. tel:[phone] [facility], [address] [place] [address] [address], [place], [place], [address], [place] tel:[phone] SEC [facility] No Information May-0 7-200 9 Minerva Avalos [address] , [address], [place], [facility][note 2], [place]. tel:[phone] Referring Provider: Sylvia Martinez, [facility] [address], [place], [facility][note 2]. tel:[phone] [facility], [address] [place] [address] [address], [place], [place], [address], [place] tel:[phone] SEC [facility] No Information Oct-1 6-200 8 Minerva Avalos [address] , [address], [place], [facility][note 2], [place]. tel:[phone] Office/outpat ient Visit, [facility], [address] [place] [address] [address], [place], [place], [address], [place] tel:[phone] [facility] No Information Apr-1 7-200 8 Minerva Avalos [address] , [address], [place], [facility][note 2], [place]. tel:[phone] [facility], [address] [place] [address] [address], [place], [place], [address], [place] tel:[phone] [facility] No Information Oct-2 9-200 7 Minerva Avalos [address] , [address], [place], [facility][note 2], [place]. tel:[phone] Referring Provider: Sylvia Martinez, [address], [place], [address]. tel:[phone] [facility], [address], [place], [place], [address], [place] tel:[phone] [facility] [place] No Information 4200 7 Minerva Ward. 24[address] [facility] , [address], [place], [address], [place]. tel:[phone] Family History Family Member Type Diagnosis Age At Onset No Information Payers Payer name Insurance type Covered green party ID Authoriza tion(s) [employer] Mdcr Adv CI [id number] Social History Type Description Quantity Date Captured [...]
--- OUTSIDE RECORDS SUMMARY | 2025-05-25 05:17 | XMS_ITS | Continuity of Care Document ---
Author Name [facility] Organization [facility] Care Team Providers Care Wheel Installer Name Role Phone [facility] Unavailable Unavailable Encounters [...] ADM Date DC Date Status Disposition Source [facility] Outpatient Encounter [id number] 01/10 [facility] N
--- NOTE | 2025-05-25 05:23 | ED_ITS ---
HPI - Male Genitourinary General Chief complaint: Urogenital-Male Stated complaint: i need a cath put in Time Seen by Provider: 05/25/25 04:43 History of Present Illness HPI Narrative: Patient with history of BPH presents here requesting cath placement, he had just had removed on , but since 8:00 p.m. last night, has not been able urinate, he did try cathing himself this morning however was unsuccessful and there was blood. Related Data Home Medications ?Medication ?Instructions ?Recorded ?Confirmed ?Last Taken ?Type levofloxacin 500 mg tablet 500 mg PO DAILY 09/10/24 05/01/25 Unknown History Allergies Allergy/AdvReac Type Severity Reaction Status Date / Time No Known Allergies Allergy Verified 04/09/25 09:38 Review of Systems 2 Review of Systems: All systems reviewed & are unremarkable except as noted in HPI and below PMFSH Past Medical History Medical History URI with cough and congestion Urinary retention Acute dermatitis Body mass index [BMI] 26.0-26.9, adult (07/22/17) Body mass index [BMI] 27.0-27.9, adult (02/01/17) Body mass index [BMI] 31.0-31.9, adult (05/18/16) Bronchitis Coughing Enlarged prostate without lower urinary tract symptoms (luts) URI, acute Wheezing Encounter for immunization Contact dermatitis HLD (hyperlipidemia) Surgical History Surgical History History of skin surgery 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 No problems noted. Sibling Acute myocardial infarction Social History Social History Smoking status: Former smoker Second hand tobacco smoke exposure: Yes Smoking end date: 10/24/77 Alcohol intake: former Alcohol use details: last alcohol use 05/2023 Substance use: never Substance use type: does not use Current Housing: Decline to Answer Concerned About Future Housing: Decline to Answer Difficulty Paying Gas/Electric Bills: Decline to Answer Difficulty Paying for Meds: Decline to Answer Currently Unemployed: Decline to Answer Education: Decline to Answer Difficulty w/ Childcare or Family Care: Decline to Answer Living arrangements: with family Occupation/Education: retired 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 EYES: EOMI, conjunctiva normal ENT: Hearing grossly intact LUNGS: Nonlabored breathing. HEART: [Regular rate and rhythm] ABD: [Soft], slight suprapubic discomfort : Blood at meatus EXT: Normal range of motion SKIN: [No rashes or lesions.] NEURO: [Alert and oriented x 3. No gross focal sensory or strength deficits.] PSYCH: Normal affect Course Vital Signs Vital signs: Vital Signs Temperature 98.2 F 05/25/25 04:42 Pulse Rate 75 05/25/25 04:42 Respiratory Rate 18 05/25/25 04:42 Blood Pressure 174/85 H 05/25/25 04:42 Pulse Oximetry 96 05/25/25 04:42 Temperature 98.2 F 05/25/25 04:42 Pulse Rate 65 05/25/25 06:46 Respiratory Rate 18 05/25/25 06:46 Blood Pressure 150/67 H 05/25/25 06:46 Pulse Oximetry 96 05/25/25 06:46 Procedures Catheter Insertion (Urinary) Urinary Catheter 1: Date of insertion: 05/25/25 Reason for placing: Yes Reason for placing indwelling catheter: Acute urinary retention Bladder scan/ultrasound used before catheterization: Yes Estimated amount of urine (mLs): 500 Antiseptic solution prep: Povidone-Iodine Topical anesthesia used: Yes Catheter type/location: 3-way Urethral Catheter balloon size (mL): 10 Catheter balloon amount: 10 Procedure performed: without complications MDM - Male Genitourinary MDM Narrative Medical decision making narrative: Patient history of BPH who has had issues with urinary retention for while, and has intermittent Motta's placed, presents here due to inability to urinate after having his Motta removed I day prior. Catheter placed and patient feels much better. Draining well, clear/orange urine without any clots or signs of obstruction. UA w/o infxn; Cr nm here. Strict return precautions discussed. Pt to f/u with urologist; he is agreeable to plan. Lab Data 05/25/25 05:31 05/25/25 05:31 Labs: Lab Results 05/25/25 Range/Units 05:31 WBC 10.6 H (4.5-10.0) K/mm3 RBC 4.13 L (4.6-6.20) M/mm3 Hgb 12.3 L (14.0-18.0) g/dL Hct 39.3 L (42.0-52.0) % MCV 95.2 (80-100) fl MCH 29.8 (26-34) pg MCHC 31.3 L (32-36) g/dl RDW 12.8 (11.5-14.5) % Plt Count 278 (150-375) k/mm3 MPV 8.3 (7.4-10.4) fl Immature Gran % (Auto) Not Reportable Neut % (Auto) Not Reportable Lymph % (Auto) Not Reportable Fisher % (Auto) Not Reportable Eos % (Auto) Not Reportable Baso % (Auto) Not Reportable Lymph # (Auto) Not Reportable Fisher # (Auto) Not Reportable Eos # (Auto) Not Reportable Baso # (Auto) Not Reportable Abs Immat Gran (auto) Not Reportable Absolute Neuts (auto) Not Reportable Absolute Nucleated RBC Not Reportable Total Counted 100 Neutrophils % (Manual) 69 (46-73) % Band Neutrophils % 2 (0-6) % Lymphocytes % (Manual) 17.0 L (18-44) % Monocytes % (Manual) 8 (3-9) % Eosinophils % (Manual) 4 (0-4) % Nucleated RBC % Not Reportable Abs Neuts (Manual) 7.52 H (1.3-6.7) K/mm3 Abs Lymphs (Manual) 1.80 (1.1-4.5) K/mm3 Abs Monocytes (Manual) 0.84 (0.1-0.90) K/mm3 Absolute Eos (Manual) 0.42 (0.02-0.50) K/mm3 Atypical Lymphocytes Present Platelet Estimate Adequate (Adequate) Large Platelets Present Schistocytes None seen Sodium 138 (137-145) mmol/L Potassium 3.6 (3.4-5.0) mmol/L Chloride 107 (98-107) mmol/L Carbon Dioxide 29 (22-30) mmol/L Anion Gap 2 L (4-12) mmol/L BUN 16 D (9-20) mg/dL Creatinine 0.77 (0.7-1.3) mg/dL Estim Creat Clear Calc 57 ml/min Estimated GFR > 60 (59 - ) Glucose 89 (65-110) mg/dL Calcium 8.3 L (8.4-10.2) mg/dL Urine Color Pease H (Yellow) Urine Appearance Clear (Clear) Urine pH 5.0 (5.0-9.0) Ur Specific [place] 1.007 (1.001-1.035) Urine Protein Trace (Negative) mg/dL Urine Glucose (UA) Negative (Negative) mg/dL Urine Ketones Negative (Negative) mg/dL Ur Blood (Man) 3+ H (Negative) Urine Nitrate Positive H (Negative) Urine Bilirubin 1+ H (Negative) Urine Urobilinogen 1.0 (<2.0) mg/dL Add Ur Microanalysis Reviewed Leukocyte Esterase Rfl 1+ H (Negative) RITESH/UL Urine RBC 11-20 H (0-2) /hpf Urine WBC 0-5 (0-3) /hpf Ur Squamous Epith Cells None seen (Few) /hpf Urine Bacteria None seen /hpf Urine Casts 0-2 Discharge Plan Discharge Clinical Impression: Urinary retention Patient Disposition: Home Condition: Stable Instructions: Motta Catheter Placement and Care (ED) Additional Instructions: Please follow-up with urologist in the next 2-3 days. If you start noticing any blockage with a Motta, or if it is not draining, or if you start having any pain, or anything else concerning, come back to the emergency room. Patient Language: Swedish Prescriptions: No Action levofloxacin 500 mg tablet 500 mg PO DAILY Trelegy Ellipta 100-62.5-25 mcg blister with device 1 inh inhalation Q24H Qty: 60 5RF Rx Instructions: rinse and spit tamsulosin [Flomax] 0.4 mg capsule 0.4 mg PO DAILY 14 Days Qty: 14 0RF furosemide [Lasix] 20 mg tablet 20 mg PO DAILY Qty: 14 0RF finasteride 5 mg tablet See Rx Instructions .ROUTE .COMPLEX Qty: 90 2RF Dose Instruction: TAKE 1 TABLET BY MOUTH EVERY DAY Rx Instructions: TAKE 1 TABLET BY MOUTH EVERY DAY meloxicam 15 mg tablet See Rx Instructions .ROUTE .COMPLEX Qty: 90 2RF Dose Instruction: TAKE 1 TABLET BY MOUTH EVERY DAY Rx Instructions: TAKE 1 TABLET BY MOUTH EVERY DAY amlodipine 5 mg tablet See Rx Instructions .ROUTE .COMPLEX Qty: 90 2RF Dose Instruction: TAKE 1 TABLET BY MOUTH EVERY DAY Rx Instructions: TAKE 1 TABLET BY MOUTH EVERY DAY trazodone 100 mg tablet See Rx Instructions .ROUTE .COMPLEX Qty: 90 2RF Dose Instruction: 100 MG ORALLY EVERY DAY AT BEDTIME NEEDED FOR INSOMNIA Rx Instructions: 100 MG ORALLY EVERY DAY AT BEDTIME NEEDED FOR INSOMNIA Follow-up/Referrals: Davie Lewis MD [Primary Care Provider] -
[2025-05-25 05:42] LABS: Hematocrit 39.3 % (42.0-52.0); Hemoglobin 12.3 g/dL (14.0-18.0); Mean Corpuscular HGB Conc 31.3 g/dl (32-36); Mean Corpuscular Hemoglobin 29.8 pg (26-34); Mean Corpuscular Volume 95.2 fl (80-100); Platelet Count Result 278 k/mm3 (150-375); Red Blood Count 4.13 M/mm3 (4.6-6.20); White Blood Count 10.6 K/mm3 (4.5-10.0)
[2025-05-25 05:53] LABS: Need Manual Microscopic Reviewed; Non Pathogenic Casts 0-2
[2025-05-25 05:54] LABS: Add Urine Microscopic? YES; Appearance Urine Clear (Clear); Glucose Urine UA Negative (Negative); Leukocyte Esterase Ur 1+ LEU/UL (Negative); Nitrate Urine Positive (Negative); Specific Grav Ur 1.007 (1.001-1.035)
[2025-05-25 05:56] LABS: Anion Gap 2 mmol/L (4-12); Blood Urea Nitrogen 16 mg/dL (9-20); Calcium 8.3 mg/dL (8.4-10.2); Carbon Dioxide 29 mmol/L (22-30); Chloride 107 mmol/L (98-107); Estimated CRCL calculation 57 ml/min; Estimated Glomerular Filt Rate > 60; Glucose 89 mg/dL (65-110); Potassium 3.6 mmol/L (3.4-5.0); Sodium 138 mmol/L (137-145)
[2025-05-25 06:04] LABS: Band Neutrophils Percent 2 % (0-6); Eosinophils Absolute Manual 0.42 K/mm3 (0.02-0.50); Eosinophils Percent Manual 4 % (0-4); Lymphocytes Absolute Manual 1.80 K/mm3 (1.1-4.5); Lymphocytes Percent Manual 17.0 % (18-44); Monocytes Absolute Manual 0.84 K/mm3 (0.1-0.90); Monocytes Percent Manual 8 % (3-9); Neutrophils Absolute Manual 7.52 K/mm3 (1.3-6.7); Neutrophils Percent Manual 69 % (46-73); Schistocytes None Seen; Total Cells Counted 100
[2025-05-25 06:46] VITALS: BP 150/67; PULSE 65; RESP 18; O2SAT 96
== END 2025-05-25 06:46 | disposition home or self-care (01) ==
PROVIDERS: Emergency Provider Emergency Medicine; PCP Emergency Medicine
DX: N40.1 Benign prostatic hyperplasia with lower urinary tract symptoms (principal); R33.8 Other retention of urine; E78.5 Hyperlipidemia, unspecified; Z87.891 Personal history of nicotine dependence; Z79.899 Other long term (current) drug therapy
CPT/HCPCS: 36415; 51700; 80048; 81001; 85025; 87086; 99283